=== PATIENT | female | born 1935 | race Caucasian/White ===

== ENCOUNTER → 2017-03-20 | Outpatient (CLI) | payer MEDICARE, BC ==
--- NOTE | 2017-03-20 14:17 | XR ---
EXAMINATION TYPE: XR chest 2V DATE OF EXAM: 03/20/2017 COMPARISON: NONE HISTORY: Shortness of breath TECHNIQUE: Frontal and lateral views of the chest are obtained. FINDINGS: There is no focal air space opacity, pleural effusion, or pneumothorax seen. The cardiac silhouette size is within normal limits. The aorta is dense. Strand-like densities at the left lung base may reflect atelectasis or scar. Right shoulder is high riding, there may be chronic rotator cuf f tear. Rotated. Surgical clips in the upper abdomen. The osseous structures are intact. IMPRESSION: No acute cardiopulmonary process.
== END | disposition home or self-care (01) ==
LOC: RADXRMAIN 13:23
PROVIDERS: ATTEND Internal Medicine Geriatric Medicine
DX: R06.02 Shortness of breath (principal)
CPT/HCPCS: 71020

== ENCOUNTER → 2019-07-31 | Outpatient (CLI) | payer MEDICARE, BC ==
--- NOTE | 2019-07-31 15:34 | SFUN ---
SLEEP CENTER FOLLOW UP NOTE DATE OF SERVICE: 07/31/2019 An 83-year-old lady who has been followed in Sleep Center for treatment of obstructive sleep apnea-hypopnea syndrome. Patient continued to use her CPAP equipment every night for the whole night. Does not snore with the machine. Does not have significant problems related to CPAP therapy. Her CPAP unit is very old. CPAP pressure is 10 cm of water. Machine does not have information about apnea- hypopnea index. Antoine Sleepiness Scale today is 1. MEDICATIONS: Zantac, Ranitidine, atenolol, omeprazole, Lipitor, Xanax, calcium supplement, atorvastatin, baby aspirin, losartan. PHYSICAL EXAM: Patient in no distress, BP 143/64, HR 72, RR 16, height 5 feet, weight 178, body mass index 31.5. OROPHARYNX: Low position of soft palate, Mallampati 3. HEART: S1, S2. Systolic more and more on aorta. Neck Supple, no JVD. Thyroid is not palpable. LUNGS Clear to percussion and to auscultation. Good air exchange. No wheezing or rhonchi. ABDOMEN Soft and nontender. Bowel sounds are present. No organomegaly appreciated. EXTREMITIES No clubbing or cyanosis. Patient walks with a walker. [employer] Awake, alert, and oriented X3. Cranial nerves 2 to 7 intact. There is no fasciculation or atrophy. noted. No focal deficits observed. IMPRESSION: 1. Obstructive sleep apnea-hypopnea syndrome clinically controlled on CPAP at a pressure of 10 cm of water. 2. Hypertension. 3. Hyperlipidemia. 4. History of spinal stenosis. 5. Scoliosis. 6. Carpal tunnel syndrome. 7. Status post cholecystectomy. 8. Status post appendectomy. 9. Status post bilateral cataract surgery. PLAN: 1. Prescription for new CPAP unit with a pressure of 10 cm of water and all necessary CPAP supplies. 2. Patient will continue to use CPAP equipment every night for the whole night. 3. Follow up visit in 1 month after she will get new CPAP unit to evaluate her clinical response to treatment, compliance with treatment and check apnea-hypopnea index reading from the machine. 4. Precautions related to driving. No driving if feeling sleepiness. Thank you very much for allowing me to participate in the management of your patient. Sincerely, Kvng Smallwood MD, PhD, FAASM Diplomat of [employer] Consultant [facility] [place] MMODL / IJN: [id number] /
== END ==
LOC: SLEEP 14:14
PROVIDERS: ATTEND Internal Medicine
DX: G47.33 Obstructive sleep apnea (adult) (pediatric) (principal); I10 Essential (primary) hypertension; E78.5 Hyperlipidemia, unspecified; M41.9 Scoliosis, unspecified; G56.00 Carpal tunnel syndrome, unspecified upper limb; Z87.39 Personal history of other diseases of the musculoskeletal system and connective tissue; Z90.49 Acquired absence of other specified parts of digestive tract; Z99.89 Dependence on other enabling machines and devices; Z98.42 Cataract extraction status, left eye; Z98.41 Cataract extraction status, right eye; Z79.899 Other long term (current) drug therapy; Z79.82 Long term (current) use of aspirin

== ENCOUNTER 2022-05-11 14:39 | Inpatient (IN) | payer BC, MEDICARE ==
[2022-05-11] MEDS ORDERED: SODIUM CHLORIDE 0.9% 500 ML 500 ML IV STA ×2 (15:01→17:13)
[2022-05-11] MEDS ORDERED: SODIUM CHLORIDE 0.9% 1,000 ML IV STA (15:01)
[2022-05-11] MEDS ORDERED: KETOROLAC 15 MG/ML 1 ML VIAL IVP STA (15:01)
[2022-05-11] MEDS ORDERED: ONDANSETRON 4 MG/2 ML VIAL IVP STA (15:01)
--- NOTE | 2022-05-11 15:04 | ED ---
Female Urogenital HPI - General Chief complaint: Urogenital Stated complaint: Poss kidney stone Time Seen by Provider: 05/11/22 14:41 Source: patient, RN notes reviewed Mode of arrival: ambulatory Limitations: no limitations - History of Present Illness Initial comments: 86-year-old female with a prior history kidney stones and states she had the onset of right-sided flank pain about 2 hours prior to arrival she states this started in the right lower quadrant flank areas radiating somewhat upward. She's had some nausea with it no vomiting pain is approximately 7/10 at this time she states it started at 10/10. It feels identical to previous kidney stones. He's had no fevers chills or sweats related to this. No dysuria. She states she is got diminished vision and can't see what color her urine has been. MD Complaint: other - Related Data Home Medications Medication Instructions Recorded Confirmed ALPRAZolam [Xanax] 0.25 mg PO TID PRN 10/28/15 05/11/22 Aspirin EC [Ecotrin Low Dose] 81 mg PO HS 10/28/15 05/11/22 Atorvastatin Calcium [Lipitor] 10 mg PO HS 10/28/15 05/11/22 Calcium Carbonate [Calcium] 600 mg PO HS 10/28/15 05/11/22 Diclofenac Sodium [Voltaren] 75 mg PO BID 10/28/15 05/11/22 Loratadine [Claritin] 10 mg PO HS 10/28/15 05/11/22 Potassium Chloride ER [K-Dur 10] 20 meq PO HS 10/28/15 05/11/22 atenoloL [Tenormin] 50 mg PO HS 10/28/15 05/11/22 Ergocalciferol [Vitamin D2 50,000 unit PO SERNA 09/23/17 05/11/22 (DRISDOL)] Losartan Potassium [Cozaar] 50 mg PO HS 09/23/17 05/11/22 Vit C/E/Zn/Coppr/Lutein/Zeaxan 1 cap PO BID 09/23/17 05/11/22 [Preservision Areds 2 Softgel] Albuterol Sulfate [Albuterol 2 puff PO RT-Q6H PRN 05/11/22 05/11/22 Sulfate Hfa] Multivit-Min/Iron/Folic/Lutein 1 tab PO HS 05/11/22 05/11/22 [Centrum Silver Women Tablet] Pantoprazole Sodium [Protonix] 40 mg PO BID 05/11/22 05/11/22 Allergies Allergy/AdvReac Type Severity Reaction Status Date / Time Iodinated Contrast Media Allergy Unknown Verified 05/11/22 16:22 [Iodinated Contrast Media - IV Dye] shellfish derived [Shrimp] Allergy Unknown Verified 05/11/22 16:22 Review of Systems ROS Statement: Those systems with pertinent positive or pertinent negative responses have been documented in the HPI. ROS Other: All systems not noted in ROS Statement are negative. Past Medical History Past Medical History: Heart Failure, GERD/Reflux, Hearing Disorder / Deafness, Hyperlipidemia, Hypertension, Osteoarthritis (OA) Additional Past Medical History / Comment(s): SLEEP APNEA, jaundice in the 11th grade unsure of why, macular degeneration, Mitral valve issues - pt unsure if it is prolapsed, mild renal insufficency, scoliosis, spinal stenosis, sciatica History of Any Multi-Drug Resistant Organisms: None Reported Past Surgical History: Appendectomy, Cholecystectomy, Hysterectomy, Orthopedic Surgery Additional Past Surgical History / Comment(s): Bilateral cataract extraction and intraocular lens implants, right carpal tunnel release, epidural injections in the lumbar spine, colonoscopy 4 years ago with no abnormalities, left knee arthroscopy Past Anesthesia/Blood Transfusion Reactions: No Reported Reaction Past Psychological History: Anxiety, Depression Smoking Status: Former smoker Past Alcohol Use History: None Reported Past Drug Use History: None Reported - Past Family History Son(s) Additional Family Medical History / Comment(s): hemodialysis. Patient has a total of 3 sons. Father Family Medical History: CVA/TIA Additional Family Medical History / Comment(s): Father at age 77 status post several strokes. Mother Additional Family Medical History / Comment(s): Mother at age 86 from pneumonia. Sister(s) Additional Family Medical History / Comment(s): Patient has 3 sisters and one from cancer and one from a myocardial infarction with history of Wiliam recinos's. Patient does not have any brothers. General Exam - General Exam Comments Initial Comments: This is a well-developed well-nourished awake alert oriented 4 female Limitations: no limitations General appearance: alert, anxious Head exam: Present: atraumatic, normocephalic, normal inspection Eye exam: Present: normal appearance, PERRL, EOMI. Absent: scleral icterus, conjunctival injection, periorbital swelling ENT exam: Present: normal exam, mucous membranes moist Neck exam: Present: normal inspection. Absent: tenderness, meningismus, lymphadenopathy Respiratory exam: Present: normal lung sounds bilaterally. Absent: respiratory distress, wheezes, rales, rhonchi, stridor Cardiovascular Exam: Present: regular rate, normal rhythm, normal heart sounds. Absent: systolic murmur, diastolic murmur, rubs, gallop, clicks GI/Abdominal exam: Present: soft, tenderness (Minimal discomfort to palpation over the right flank and lower quadrant region), normal bowel sounds. Absent: distended, guarding, rebound, rigid Extremities exam: Present: normal inspection, full ROM, normal capillary refill. Absent: tenderness, pedal edema, joint swelling, calf tenderness Back exam: Present: normal inspection Neurological exam: Present: alert, oriented X3, CN II-XII intact Psychiatric exam: Present: normal affect, normal mood Skin exam: Present: warm, dry, intact, normal color. Absent: rash Course Vital Signs 05/11/22 05/11/22 05/11/22 14:41 18:06 19:40 Temperature 97.6 F Pulse Rate 70 76 70 Respiratory 16 16 16 Rate Blood Pressure 167/77 125/59 136/66 O2 Sat by Pulse 96 95 99 Oximetry - Reevaluation(s) Reevaluation #1: 05/11/22 17:19 Patient's pain is down to 5/10 no more nausea I did discuss the findings with her and her family members. Patient will receive more medication Medical Decision Making - Medical Decision Making I did reevaluate patient on multiple occasions she still has persistent pain with nausea. She does demonstrate evidence of dehydration. I did discuss the case with Dr. Singh will be consulted patient will be admitted to medicine Dr. Ventura's covering Dr. Romero. - Lab Data Result diagrams: 05/11/22 15:01 05/11/22 15:01 Lab Results 05/11/22 05/11/22 Range/Units 15:01 15:01 WBC 5.4 (3.8-10.6) k/uL RBC 4.13 (3.80-5.40) m/uL Hgb 13.2 (11.4-16.0) gm/dL Hct 39.7 (34.0-46.0) % MCV 96.3 (80.0-100.0) fL MCH 32.0 (25.0-35.0) pg MCHC 33.2 (31.0-37.0) g/dL RDW 13.7 (11.5-15.5) % Plt Count 188 (150-450) k/uL MPV 8.2 Neutrophils % 71 % Lymphocytes % 17 % Monocytes % 6 % Eosinophils % 3 % Basophils % 1 % Neutrophils # 3.8 (1.3-7.7) k/uL Lymphocytes # 0.9 L (1.0-4.8) k/uL Monocytes # 0.3 (0-1.0) k/uL Eosinophils # 0.2 (0-0.7) k/uL Basophils # 0.0 (0-0.2) k/uL Sodium 139 (137-145) mmol/L Potassium 4.7 (3.5-5.1) mmol/L Chloride 109 H (98-107) mmol/L Carbon Dioxide 23 (22-30) mmol/L Anion Gap 7 mmol/L BUN 37 H (7-17) mg/dL Creatinine 1.57 H (0.52-1.04) mg/dL Est GFR (CKD-EPI)AfAm 34 (>60 ml/min/1.73 sqM) Est GFR (CKD-EPI)NonAf 30 (>60 ml/min/1.73 sqM) Glucose 113 H (74-99) mg/dL Calcium 9.9 (8.4-10.2) mg/dL Total Bilirubin 1.0 (0.2-1.3) mg/dL AST 44 H (14-36) U/L ALT 36 H (4-34) U/L Alkaline Phosphatase 61 (38-126) U/L Total Protein 7.0 (6.3-8.2) g/dL Albumin 4.2 (3.5-5.0) g/dL Amylase 71 (30-110) U/L Lipase 171 (23-300) U/L - Radiology Data Radiology results: report reviewed (Imaging reviewed as well as report evidence of a 4 mm calculus at the distal right ureter also some other calcification noted in the same area.), image reviewed Disposition Clinical Impression: Renal colic on right side, Kidney stone on right side, Intractable pain, Dehydration Disposition: ADMITTED IP TO THIS [facility] Condition: Fair Referrals: Low Romero MD [Primary Care Provider] - 1-2 days Decision Date: 05/11/22 Decision Time: 19:00
[2022-05-11 15:10] LABS: Basophils % (A) 1 %; Eosinophils # (A) 0.2 k/uL (0-0.7); Eosinophils % (A) 3 %; HCT 39.7 % (34.0-46.0); HGB 13.2 gm/dL (11.4-16.0); Lymphocytes # (A) 0.9 k/uL (1.0-4.8); Lymphocytes % (A) 17 %; MCHC 33.2 g/dL (31.0-37.0); MCV 96.3 fL (80.0-100.0); Mean Platelet Volume 8.2; Monocytes # (A) 0.3 k/uL (0-1.0); Monocytes % (A) 6 %; Neutrophils # (A) 3.8 k/uL (1.3-7.7); Neutrophils % (A) 71 %; Platelet Count 188 k/uL (150-450); RBC 4.13 m/uL (3.80-5.40); RDW 13.7 % (11.5-15.5); WBC 5.4 k/uL (3.8-10.6)
[2022-05-11 15:30] LABS: Albumin 4.2 g/dL (3.5-5.0); Calcium 9.9 mg/dL (8.4-10.2)
[2022-05-11 15:31] LABS: Potassium 4.7 mmol/L (3.5-5.1)
--- NOTE | 2022-05-11 15:42 | XR ---
EXAMINATION TYPE: XR KUB DATE OF EXAM: 05/11/2022 Comparison: Correlation CT same day Clinical History: 86-year-old female abdominal pain Findings: Degenerative S-shaped scoliosis. Nonobstructive bowel gas pattern. No significant stool burden. Jenise cystectomy clips. A couple small, 4 and 5 mm distal right ureteral and UVJ calculi seen on CT of the same day are not radiographically apparent. A couple left-sided renal calculi measuring up to 4 mm. Atherosclerotic calcifications throughout the abdominal aorta. Moderate degenerative change in both h ips. Impression: 1. A couple small, 4 and 5 mm distal right ureteral and UVJ stones seen on CT of the same day are not radiographically apparent. 2. Nonobstructive left renal calculi measuring up to 4 mm. 3. Degenerated S-shaped scoliosis. Moderate bilateral hip OA.
--- NOTE | 2022-05-11 15:43 | CT ---
EXAMINATION TYPE: CT abdomen pelvis wo con DATE OF EXAM: 05/11/2022 COMPARISON: 05/18/2014 INDICATION: Rt flank pain, hx renal stones DLP: 575.8 mGycm, Automated exposure control for dose reduction was used. CONTRAST: 0 mL of Isovue 300. Study performed without Oral Contrast TECHNIQUE: Axial images were obtained from above the diaphragm to the pubic rami in the axial plane a t 5 mm thick sections. Reconstructed images are reviewed on the computer in the coronal plane. FINDINGS: Limited CT sections are obtained the lung bases. The lung bases are clear. CT ABDOMEN: Liver: Normal Spleen: Normal Pancreas: Normal Adrenal glands: The adrenal glands are normal. Gallbladder: Surgically absent Kidneys: No masses are evident. Air is moderate right hydronephrosis and hydroureter. Hydroureter ext ends to a distal ureteral stone near the ureterovesical junction measuring 0.4 cm. An additional punc baumann calcification may be in the distal right ureterovesical junction measuring 0.4 cm. There is a 4. 4 cm cyst at the posterior superior pole left kidney. A 0.4 cm nonobstructing renal stone is in the superior lateral left kidney. Couple of additional punctate mid left kidney stones are present. Aorta: Vascular calcification is within the aorta. Inferior vena cava: There is some flattening of the inferior vena cava which may be related to volume status. CT PELVIS: Loops of bowel within the abdomen and pelvis are normal. Studies lateral contrast limiting bowel evaluation. Appendix: Not visualized. No dilated tubular structure or inflammatory changes are evident. Urinary bladder: Normal. Genitourinary structures: Uterus and ovaries are not identified. Osseous structures: No suspicious lytic or sclerotic lesions. Spondylolysis at L5 may be present. Deg enerative disc changes are present. IMPRESSIONS: 1. 0.4 cm distal right ureteral stone with an additional 0.4 cm calcification at the right ureterove sical junction. 2. Additional nonobstructing left renal stones. 3. Left renal cyst
[2022-05-11] MEDS ORDERED: TAMSULOSIN 0.4 MG CAP.ER.24H PO STA (17:13)
[2022-05-11] MEDS ORDERED: MORPHINE SULFATE 4 MG/ML SYRINGE IVP STA (17:13)
[2022-05-11] MEDS ORDERED: NALOXONE 0.4 MG/ML 1 ML VIAL IV PRN (19:52)
[2022-05-11] MEDS ORDERED: HYDROmorphone 0.5 MG/0.5 ML SYRINGE IVP PRN (19:52)
[2022-05-11] MEDS ORDERED: ALBUTEROL NEBULIZED 2.5 MG/3 ML INHALATION PRN (19:54)
[2022-05-11] MEDS: LORATADINE 10 MG TAB PO SCH (20:40)
[2022-05-11] MEDS: ASPIRIN 81 MG PO SCH (20:40)
[2022-05-11] MEDS: ATORVASTATIN 10 MG TAB PO SCH (20:40)
[2022-05-11] MEDS: PANTOPRAZOLE 40 MG TABLET PO SCH (20:41)
[2022-05-11] MEDS: ALPRAZolam 0.25 MG TAB PO PRN (20:41)
[2022-05-11] MEDS: POTASSIUM CHLORIDE ER 20 MEQ TAB.ER PO SCH (20:41)
[2022-05-11] MEDS: SODIUM CHLORIDE 0.9% 1,000 ML IV SCH (20:41)
[2022-05-11] MEDS: MULTIVITAMINS, THERA 1 EACH TAB PO SCH (20:41)
[2022-05-11] MEDS ORDERED: LOSARTAN 50 MG TAB PO SCH (21:00)
[2022-05-11] MEDS: atenoloL 50 MG TAB PO SCH (22:37)
[2022-05-11] MEDS: ACETAMINOPHEN TAB 325 MG TAB PO PRN (23:05)
[2022-05-12] MEDS: SODIUM CHLORIDE 0.9% 1,000 ML IV SCH (04:47)
[2022-05-12] MEDS: PANTOPRAZOLE 40 MG TABLET PO SCH ×2 (08:02→20:24)
--- NOTE | 2022-05-12 08:23 | P.GSCN ---
History of Present Illness Consult date: 05/12/22 History of present illness: 86 yo female with a history of stones presents to the er with right flank pain. A 4 mm right distal ureteral stone with hydronephrosis. Because of persistent pain she was admitted to the hospital for pain control and urological consultation.The ct scan also shows a small left renal cyst and tiny left renal calculi. The patient has had one stone that she passed about 5 years ago. She's never seen a urologist. She is feeling much better this morning. She's not sure whether she passed the stone. She has no more pain. Review of Systems All systems: negative - Constitutional Denies fever, Denies weight loss - EENT Eyes: denies blurred vision Ears, nose, mouth and throat: Denies dysphagia - Cardiovascular Denies chest pain, Denies shortness of breath - Respiratory Denies cough, Denies 7 - Gastrointestinal Reports as per HPI - Genitourinary Genitourinary: Denies dysuria, Denies hematuria - Integumentary Denies rash, Denies unusual bruising - Neurological Denies headaches, Denies syncope - Hematologic/Lymphatic Denies easy bleeding, Denies easy bruising Past Medical History Past Medical History: Heart Failure, GERD/Reflux, Hearing Disorder / Deafness, Hyperlipidemia, Hypertension, Osteoarthritis (OA) Additional Past Medical History / Comment(s): SLEEP APNEA, jaundice in the 11th grade unsure of why, macular degeneration, Mitral valve issues - pt unsure if it is prolapsed, mild renal insufficency, scoliosis, spinal stenosis, sciatica History of Any Multi-Drug Resistant Organisms: None Reported Past Surgical History: Appendectomy, Cholecystectomy, Hysterectomy, Orthopedic Surgery Additional Past Surgical History / Comment(s): Bilateral cataract extraction and intraocular lens implants, right carpal tunnel release, epidural injections in the lumbar spine, colonoscopy 4 years ago with no abnormalities, left knee arthroscopy Past Anesthesia/Blood Transfusion Reactions: No Reported Reaction Past Psychological History: Anxiety, Depression Smoking Status: Former smoker Past Alcohol Use History: None Reported Additional Past Alcohol Use History / Comment(s): Patient was a smoker one and half packs per day for 15 years and quit 35 years ago. No marijuana, illicit drug use or alcohol use. She is a walker for ambulation. Past Drug Use History: None Reported - Past Family History Son(s) Additional Family Medical History / Comment(s): hemodialysis. Patient has a total of 3 sons. Father Family Medical History: CVA/TIA Additional Family Medical History / Comment(s): Father at age 77 status post several strokes. Mother Additional Family Medical History / Comment(s): Mother at age 86 from pneumonia. Sister(s) Additional Family Medical History / Comment(s): Patient has 3 sisters and one from cancer and one from a myocardial infarction with history of Parkinson's. Patient does not have any brothers. Medications and Allergies Home Medications Medication Instructions Recorded Confirmed Type ALPRAZolam [Xanax] 0.25 mg PO TID PRN 10/28/15 05/11/22 History Aspirin EC [Ecotrin Low Dose] 81 mg PO HS 10/28/15 05/11/22 History Atorvastatin Calcium [Lipitor] 10 mg PO HS 10/28/15 05/11/22 History Calcium Carbonate [Calcium] 600 mg PO HS 10/28/15 05/11/22 History Diclofenac Sodium [Voltaren] 75 mg PO BID 10/28/15 05/11/22 History Loratadine [Claritin] 10 mg PO HS 10/28/15 05/11/22 History Potassium Chloride ER [K-Dur 10] 20 meq PO HS 10/28/15 05/11/22 History atenoloL [Tenormin] 50 mg PO HS 10/28/15 05/11/22 History Ergocalciferol [Vitamin D2 50,000 unit PO SERNA 09/23/17 05/11/22 History (DRISDOL)] Losartan Potassium [Cozaar] 50 mg PO HS 09/23/17 05/11/22 History Vit C/E/Zn/Coppr/Lutein/Zeaxan 1 cap PO BID 09/23/17 05/11/22 History [Preservision Areds 2 Softgel] Albuterol Sulfate [Albuterol 2 puff PO RT-Q6H PRN 05/11/22 05/11/22 History Sulfate Hfa] Multivit-Min/Iron/Folic/Lutein 1 tab PO HS 05/11/22 05/11/22 History [Centrum Silver Women Tablet] Pantoprazole Sodium [Protonix] 40 mg PO BID 05/11/22 05/11/22 History Allergies Allergy/AdvReac Type Severity Reaction Status Date / Time Iodinated Contrast Media Allergy Unknown Verified 05/11/22 16:22 [Iodinated Contrast Media - IV Dye] shellfish derived [Shrimp] Allergy Unknown Verified 05/11/22 16:22 Surgical - Exam Vital Signs Temp Pulse Resp BP Pulse Ox 97.6 F 70 16 167/77 96 05/11/22 14:41 05/11/22 14:41 05/11/22 14:41 05/11/22 14:41 05/11/22 14:41 - General well developed, well nourished, no distress - Eyes normal ocular movement, no icteric - ENT no hearing loss, no congestion - Neck no masses, trachea midline - Respiratory normal respiratory effort, clear to auscultation - Abdomen Abdomen: soft, non tender, no guarding, no rigid, no rebound - Integumentary no rash, no abnormal pigmentation - Neurologic no disoriented, no combative - Psychiatric oriented to time, oriented to person, oriented to place, speech is normal, memory intact Results - Labs 05/11/22 15:01 05/11/22 15:01 Abnormal Lab Results - Last 24 Hours (Table) 05/11/22 05/11/22 Range/Units 15:01 15:01 Lymphocytes # 0.9 L (1.0-4.8) k/uL Chloride 109 H (98-107) mmol/L BUN 37 H (7-17) mg/dL Creatinine 1.57 H (0.52-1.04) mg/dL Glucose 113 H (74-99) mg/dL AST 44 H (14-36) U/L ALT 36 H (4-34) U/L Diabetes panel 05/11/22 Range/Units 15:01 Sodium 139 (137-145) mmol/L Potassium 4.7 (3.5-5.1) mmol/L Chloride 109 H (98-107) mmol/L Carbon Dioxide 23 (22-30) mmol/L BUN 37 H (7-17) mg/dL Creatinine 1.57 H (0.52-1.04) mg/dL Glucose 113 H (74-99) mg/dL Calcium 9.9 (8.4-10.2) mg/dL AST 44 H (14-36) U/L ALT 36 H (4-34) U/L Alkaline Phosphatase 61 (38-126) U/L Total Protein 7.0 (6.3-8.2) g/dL Albumin 4.2 (3.5-5.0) g/dL Calcium panel 05/11/22 Range/Units 15:01 Calcium 9.9 (8.4-10.2) mg/dL Albumin 4.2 (3.5-5.0) g/dL Pituitary panel 05/11/22 Range/Units 15:01 Sodium 139 (137-145) mmol/L Potassium 4.7 (3.5-5.1) mmol/L Chloride 109 H (98-107) mmol/L Carbon Dioxide 23 (22-30) mmol/L BUN 37 H (7-17) mg/dL Creatinine 1.57 H (0.52-1.04) mg/dL Glucose 113 H (74-99) mg/dL Calcium 9.9 (8.4-10.2) mg/dL Adrenal panel 05/11/22 Range/Units 15:01 Sodium 139 (137-145) mmol/L Potassium 4.7 (3.5-5.1) mmol/L Chloride 109 H (98-107) mmol/L Carbon Dioxide 23 (22-30) mmol/L BUN 37 H (7-17) mg/dL Creatinine 1.57 H (0.52-1.04) mg/dL Glucose 113 H (74-99) mg/dL Calcium 9.9 (8.4-10.2) mg/dL Total Bilirubin 1.0 (0.2-1.3) mg/dL AST 44 H (14-36) U/L ALT 36 H (4-34) U/L Alkaline Phosphatase 61 (38-126) U/L Total Protein 7.0 (6.3-8.2) g/dL Albumin 4.2 (3.5-5.0) g/dL - Imaging CT scan - abdomen: report reviewed, image reviewed CT scan - pelvis: report reviewed, image reviewed Assessment and Plan Assessment: Impression: Right ureteral calculus, left renal calculi Recommendations: The patient may have passed a stone as her pain is totally g one. She is voided. From my standpoint she can be discharged home and follow- up in the office in a couple weeks. Have instructed the patient that if her pain returns she should contact me prior to the scheduled office visit.
[2022-05-12 08:24] LABS: Basophils % (A) 1 %; Eosinophils # (A) 0.1 k/uL (0-0.7); Eosinophils % (A) 3 %; Lymphocytes # (A) 0.8 k/uL (1.0-4.8); Lymphocytes % (A) 18 %; MCH 32.3 pg (25.0-35.0); MCHC 32.6 g/dL (31.0-37.0); MCV 99.2 fL (80.0-100.0); Mean Platelet Volume 8.1; Monocytes # (A) 0.3 k/uL (0-1.0); Monocytes % (A) 6 %; Neutrophils % (A) 71 %; Platelet Count 142 k/uL (150-450); RBC 3.73 m/uL (3.80-5.40); RDW 13.6 % (11.5-15.5); WBC 4.3 k/uL (3.8-10.6)
--- NOTE | 2022-05-12 08:52 | P.HPIM ---
History of Present Illness This is a pleasant 86 years old female with past medical history of hypertension, hyperlipidemia, chronic heart failure, coronary artery disease, GERD, osteoarthritis spinal stenosis and sciatica, sleep apnea Patient presents because of right flank pain of one-day duration, pain was severe about 10/10. Imaging showing right ureteral stone. However her pain is completely resolved now is 0/10. She is not sure if he passed a stone or not however she's been evaluated by urologist Dr. Castro who cleared her for discharge today. Patient was informed about her elevated creatinine, with instruction to stop NSAIDs including Voltaren at home and she verbalized understanding and acceptance Vitals are stable. Labs including CBC is unremarkable. Creatinine is elevated at 1.5. Baseline 1.0-1.1. Mildly elevated liver enzymes AST 44 and ALT 36 with normal bilirubin at 1.0. CT of the abdomen and pelvis: 0.4 cm distal ureteral stone on the right side with additional 0.4 cm calcification of the right ureterovesical junction. Left renal cyst, patient nonobstructing left renal stone KUB: Non obstructive gas pattern. Hip osteoarthritis, renal stones as above In the emergency room patient received normal saline, Toradol, morphine and Zofran. Urologist been consulted Review of Systems CONSTITUTIONAL: No fever, no malaise, no fatigue. HEENT: No recent visual problems or hearing problems. Denied any sore throat. CARDIOVASCULAR: No orthopnea, PND, no palpitations, no syncope. PULMONARY: No shortness of breath, no cough, no hemoptysis. GASTROINTESTINAL: No diarrhea, . Normoactive bowel sounds. NEUROLOGICAL: No headaches, no weakness, no numbness. HEMATOLOGICAL: Denies any bleeding or petechiae. GENITOURINARY: Denies any burning micturition, frequency, or urgency. MUSCULOSKELETAL/RHEUMATOLOGICAL: Denies any joint pain, swelling, or any muscle pain. ENDOCRINE: Denies any polyuria or polydipsia. Past Medical History Past Medical History: Heart Failure, GERD/Reflux, Hearing Disorder / Deafness, Hyperlipidemia, Hypertension, Osteoarthritis (OA) Additional Past Medical History / Comment(s): SLEEP APNEA, jaundice in the 11th grade unsure of why, macular degeneration, Mitral valve issues - pt unsure if it is prolapsed, mild renal insufficency, scoliosis, spinal stenosis, sciatica History of Any Multi-Drug Resistant Organisms: None Reported Past Surgical History: Appendectomy, Cholecystectomy, Hysterectomy, Orthopedic Surgery Additional Past Surgical History / Comment(s): Bilateral cataract extraction and intraocular lens implants, right carpal tunnel release, epidural injections in the lumbar spine, colonoscopy 4 years ago with no abnormalities, left knee arthroscopy Past Anesthesia/Blood Transfusion Reactions: No Reported Reaction Past Psychological History: Anxiety, Depression Smoking Status: Former smoker Past Alcohol Use History: None Reported Additional Past Alcohol Use History / Comment(s): Patient was a smoker one and half packs per day for 15 years and quit 35 years ago. No marijuana, illicit drug use or alcohol use. She is a walker for ambulation. Past Drug Use History: None Reported - Past Family History Son(s) Additional Family Medical History / Comment(s): hemodialysis. Patient has a total of 3 sons. Father Family Medical History: CVA/TIA Additional Family Medical History / Comment(s): Father at age 77 status post several strokes. Mother Additional Family Medical History / Comment(s): Mother at age 86 from pneumonia. Sister(s) Additional Family Medical History / Comment(s): Patient has 3 sisters and one from cancer and one from a myocardial infarction with history of Parkinson's. Patient does not have any brothers. Medications and Allergies Home Medications Medication Instructions Recorded Confirmed Type ALPRAZolam [Xanax] 0.25 mg PO TID PRN 10/28/15 05/11/22 History Aspirin EC [Ecotrin Low Dose] 81 mg PO HS 10/28/15 05/11/22 History Atorvastatin Calcium [Lipitor] 10 mg PO HS 10/28/15 05/11/22 History Calcium Carbonate [Calcium] 600 mg PO HS 10/28/15 05/11/22 History Loratadine [Claritin] 10 mg PO HS 10/28/15 05/11/22 History Potassium Chloride ER [K-Dur 10] 20 meq PO HS 10/28/15 05/11/22 History atenoloL [Tenormin] 50 mg PO HS 10/28/15 05/11/22 History Ergocalciferol [Vitamin D2 50,000 unit PO SERNA 09/23/17 05/11/22 History (DRISDOL)] Losartan Potassium [Cozaar] 50 mg PO HS 09/23/17 05/11/22 History Vit C/E/Zn/Coppr/Lutein/Zeaxan 1 cap PO BID 09/23/17 05/11/22 History [Preservision Areds 2 Softgel] Albuterol Sulfate [Albuterol 2 puff PO RT-Q6H PRN 05/11/22 05/11/22 History Sulfate Hfa] Multivit-Min/Iron/Folic/Lutein 1 tab PO HS 05/11/22 05/11/22 History [Centrum Silver Women Tablet] Pantoprazole Sodium [Protonix] 40 mg PO BID 05/11/22 05/11/22 History Allergies Allergy/AdvReac Type Severity Reaction Status Date / Time Iodinated Contrast Media Allergy Unknown Verified 05/11/22 16:22 [Iodinated Contrast Media - IV Dye] shellfish derived [Shrimp] Allergy Unknown Verified 05/11/22 16:22 Physical Exam Vitals: Vital Signs Temp Pulse Pulse Resp BP BP BP 05/12/22 01:27 98.0 F 64 15 100/63 05/11/22 22:03 97.9 F 75 15 115/69 05/11/22 20:28 78 16 112/42 05/11/22 19:40 70 16 136/66 05/11/22 18:06 76 16 125/59 05/11/22 14:41 97.6 F 70 16 167/77 Pulse Ox 05/12/22 01:27 94 L 05/11/22 22:03 96 05/11/22 20:28 98 05/11/22 19:40 99 05/11/22 18:06 95 05/11/22 14:41 96 Intake and Output 05/11/22 05/12/22 05/12/22 22:59 06:59 14:59 Other: Voiding Method Toilet # Voids 1 Weight 75.296 kg GENERAL: The patient is alert and oriented x3, not in any acute distress. Well developed, well nourished. HEENT: Pupils are round and equally reacting to light. EOMI. No scleral icterus. No conjunctival pallor. Normocephalic, atraumatic. No pharyngeal erythema. No thyromegaly. CARDIOVASCULAR: S1 and S2 present. No murmurs, rubs, or gallops. PULMONARY: Chest is clear to auscultation, no wheezing or crackles. ABDOMEN: Soft, nontender, nondistended, normoactive bowel sounds. No palpable organomegaly. MUSCULOSKELETAL: No joint swelling or deformity. EXTREMITIES: No cyanosis, clubbing, or pedal edema. NEUROLOGICAL: Gross neurological examination did not reveal any focal deficits. SKIN: No rashes. No petechiae Results CBC & Chem 7: 05/12/22 07:56 05/11/22 15:01 Labs: Abnormal Lab Results - Last 24 Hours (Table) 05/11/22 05/11/22 Range/Units 15:01 15:01 Lymphocytes # 0.9 L (1.0-4.8) k/uL Chloride 109 H (98-107) mmol/L BUN 37 H (7-17) mg/dL Creatinine 1.57 H (0.52-1.04) mg/dL Glucose 113 H (74-99) mg/dL AST 44 H (14-36) U/L ALT 36 H (4-34) U/L Thrombosis Risk Factor Assmnt - Choose All That Apply Each Risk Factor Represents 3 Points: Age 75 years or older Thrombosis Risk Factor Assessment Total Risk Factor Score: 3 Thrombosis Risk Factor Assessment Level: Moderate Risk Assessment and Plan Assessment: Right renal colic with CT of the abdomen showing 0.4 right ureteral stone acute kidney injury, mild. Secondary to above Hypertension Hyperlipidemia Bilateral nephrolithiasis Chronic heart failure, unknown ejection fraction History of GERD History of posterior arthritis History of CHF History of spinal stenosis and sciatica History of sleep apnea Plan: This is a pleasant 86 years old female who presents with right ureteral stone and right colic. Continue with pain management when necessary, however patient is pain-free now Continue with IV hydration Urology consult to clear the patient for discharge If creatinine improves, then patient may be considered for discharge today or Labs and medication were reviewed.. Continue same treatment. Continue with sy mptomatic treatment. Resume home medication. Monitor lytes and vitals. DVT and GI prophylaxis. Further recommendations depends on the clinical course of the patient DVT prophylaxis: Subcutaneous heparin GI Prophylaxis: Pepcid
[2022-05-12 17:42] LABS: African American GFR (CKD) 29 (>60 ml/min/1.73 sqM); Anion Gap 6 mmol/L; Blood Urea Nitrogen 32 mg/dL (7-17); Calcium 9.3 mg/dL (8.4-10.2); Carbon Dioxide 24 mmol/L (22-30); Chloride 108 mmol/L (98-107); Glucose 107 mg/dL (74-99); Non-African American GFR(CKD) 25 (>60 ml/min/1.73 sqM); Potassium 4.6 mmol/L (3.5-5.1); Sodium 138 mmol/L (137-145)
[2022-05-12] MEDS: ALPRAZolam 0.25 MG TAB PO PRN (18:00)
[2022-05-12] MEDS ORDERED: MIDODRINE 5 MG TAB PO SCH (18:15)
[2022-05-12] MEDS: ATORVASTATIN 10 MG TAB PO SCH (20:24)
[2022-05-12] MEDS: POTASSIUM CHLORIDE ER 20 MEQ TAB.ER PO SCH (20:24)
[2022-05-12] MEDS: MULTIVITAMINS, THERA 1 EACH TAB PO SCH (20:24)
[2022-05-12] MEDS: LORATADINE 10 MG TAB PO SCH (20:24)
[2022-05-12] MEDS: ASPIRIN 81 MG PO SCH (20:24)
[2022-05-12] MEDS: atenoloL 50 MG TAB PO SCH (20:25)
[2022-05-13] MEDS: ALPRAZolam 0.25 MG TAB PO PRN ×2 (08:19→18:34)
[2022-05-13] MEDS: PANTOPRAZOLE 40 MG TABLET PO SCH ×2 (08:19→20:24)
[2022-05-13 11:18] LABS: Basophils # (A) 0.03 X 10*3/uL (0.00-0.10); Basophils % (A) 0.7 %; Eosinophils # (A) 0.22 X 10*3/uL (0.04-0.35); Eosinophils % (A) 5.1 %; HCT 34.7 % (37.2-46.3); HGB 10.9 g/dL (12.0-15.0); Immature Grans, Automated 0.2 %; Lymphocytes # (A) 1.04 X 10*3/uL (0.90-5.00); Lymphocytes % (A) 24.3 %; MCH 30.2 pg (27.0-32.0); MCHC 31.4 g/dL (32.0-37.0); MCV 96.1 fL (80.0-97.0); Mean Platelet Volume 10.7 fL (9.5-12.2); Monocytes # (A) 0.56 X 10*3/uL (0.20-1.00); Monocytes % (A) 13.1 %; NRBC Per 100 WBC 0 /100 WBCS (0.0-0.0); Neutrophils # (A) 2.42 X 10*3/uL (1.80-7.70); Neutrophils % (A) 56.6 %; Platelet Count 150 X 10*3/uL (140-440); RBC 3.61 X 10*6/uL (4.10-5.20); RDW 13.2 % (11.5-14.5); WBC 4.28 X 10*3/uL (4.50-10.00)
[2022-05-13 11:28] LABS: ALT 210 U/L (8-44); AST 114 U/L (13-35); African American GFR (CKD) 31.3 (60.0-200.0); Albumin 3.5 g/dL (3.8-4.9); Albumin/Globulin Ratio 1.75 (1.60-3.17); Alkaline Phosphatase 89 U/L (41-126); BUN/Creat Ratio 16.82 Ratio (12.00-20.00); Bilirubin, Conjugated <0.20 mg/dL (0.20-0.40); Blood Urea Nitrogen 28.6 mg/dL (9.0-27.0); Calcium 9.2 mg/dL (8.7-10.3); Carbon Dioxide 21.8 mmol/L (20.0-27.5); Chloride 112 mmol/L (96-109); Glucose 85 mg/dL (70-110); Magnesium 2.2 mg/dL (1.5-2.4); Potassium 4.9 mmol/L (3.5-5.5); Sodium 144 mmol/L (135-145); Total Protein 5.5 g/dL (6.2-8.2)
[2022-05-13] MEDS ORDERED: FUROSEMIDE 10 MG/ML 2 ML VIAL IV STA (16:05)
--- NOTE | 2022-05-13 16:05 | P.NPCON ---
History of Present Illness - Reason for Consult Consult date: 05/13/22 acute renal failure - Chief Complaint Right flank pain. - History of Present Illness 86-year-old white lady coming with right flank pain. Computed tomography scan consistent with non-obstructive calculi. Creatinine 1.0 MG per DL from 2017. No new labs to compare. No nausea vomiting diarrhea. No chest pain or shortness of breath. Review of Systems Constitutional: Reports as per HPI Past Medical History Past Medical History: Heart Failure, GERD/Reflux, Hearing Disorder / Deafness, Hyperlipidemia, Hypertension, Osteoarthritis (OA) Additional Past Medical History / Comment(s): SLEEP APNEA, jaundice in the 11th grade unsure of why, macular degeneration, Mitral valve issues - pt unsure if it is prolapsed, mild renal insufficency, scoliosis, spinal stenosis, sciatica History of Any Multi-Drug Resistant Organisms: None Reported Past Surgical History: Appendectomy, Cholecystectomy, Hysterectomy, Orthopedic Surgery Additional Past Surgical History / Comment(s): Bilateral cataract extraction and intraocular lens implants, right carpal tunnel release, epidural injections in the lumbar spine, colonoscopy 4 years ago with no abnormalities, left knee arthroscopy Past Anesthesia/Blood Transfusion Reactions: No Reported Reaction Past Psychological History: Anxiety, Depression Smoking Status: Former smoker Past Alcohol Use History: None Reported Additional Past Alcohol Use History / Comment(s): Patient was a smoker one and half packs per day for 15 years and quit 35 years ago. No marijuana, illicit drug use or alcohol use. She is a walker for ambulation. Past Drug Use History: None Reported - Past Family History Son(s) Additional Family Medical History / Comment(s): hemodialysis. Patient has a total of 3 sons. Father Family Medical History: CVA/TIA Additional Family Medical History / Comment(s): Father at age 77 status post several strokes. Mother Additional Family Medical History / Comment(s): Mother at age 86 from pneumonia. Sister(s) Additional Family Medical History / Comment(s): Patient has 3 sisters and one from cancer and one from a myocardial infarction with history of Parkinson's. Patient does not have any brothers. Medications and Allergies Home Medications Medication Instructions Recorded Confirmed Type ALPRAZolam [Xanax] 0.25 mg PO TID PRN 10/28/15 05/11/22 History Aspirin EC [Ecotrin Low Dose] 81 mg PO HS 10/28/15 05/11/22 History Atorvastatin Calcium [Lipitor] 10 mg PO HS 10/28/15 05/11/22 History Calcium Carbonate [Calcium] 600 mg PO HS 10/28/15 05/11/22 History Loratadine [Claritin] 10 mg PO HS 10/28/15 05/11/22 History Potassium Chloride ER [K-Dur 10] 20 meq PO HS 10/28/15 05/11/22 History atenoloL [Tenormin] 50 mg PO HS 10/28/15 05/11/22 History Ergocalciferol [Vitamin D2 50,000 unit PO SERNA 09/23/17 05/11/22 History (DRISDOL)] Losartan Potassium [Cozaar] 50 mg PO HS 09/23/17 05/11/22 History Vit C/E/Zn/Coppr/Lutein/Zeaxan 1 cap PO BID 09/23/17 05/11/22 History [Preservision Areds 2 Softgel] Albuterol Sulfate [Albuterol 2 puff PO RT-Q6H PRN 05/11/22 05/11/22 History Sulfate Hfa] Multivit-Min/Iron/Folic/Lutein 1 tab PO HS 05/11/22 05/11/22 History [Centrum Silver Women Tablet] Pantoprazole Sodium [Protonix] 40 mg PO BID 05/11/22 05/11/22 History Allergies Allergy/AdvReac Type Severity Reaction Status Date / Time Iodinated Contrast Media Allergy Unknown Verified 05/11/22 16:22 [Iodinated Contrast Media - IV Dye] shellfish derived [Shrimp] Allergy Unknown Verified 05/11/22 16:22 Physical Exam Vitals: Vital Signs Temp Pulse Resp BP BP Pulse Ox 05/13/22 14:00 68 18 122/69 97 05/13/22 08:00 97.7 F 67 18 124/54 96 05/13/22 01:46 97.6 F 65 16 115/70 95 05/12/22 20:00 75 16 05/12/22 19:09 97.5 F L 75 15 156/75 97 Intake and Output 05/13/22 05/13/22 05/13/22 06:59 14:59 22:59 Other: Voiding Method Toilet # Voids 2 Weight 77.1 kg No acute distress S1-S2 heard Lungs clear Edema Results - Lab Results Most recent lab results Calcium 9.2 mg/dL (8.7-10.3) 05/13/22 06:04 Magnesium 2.2 mg/dL (1.5-2.4) 05/13/22 06:04 05/13/22 06:04 05/13/22 06:04 Assessment and Plan Assessment: #1 acute kidney injury/progressive chronic kidney disease. -Baseline creatinine 1.2 MG per DL in 2017. #2 nonobstructive renal calculi. #3 low normal blood pressures. #4 edema Plan: #1 renal function stable and improving. #2 discontinue potassium supplements, potassium high normal. #3 one dose of Lasix 20 mg IV push today. #4 labs in the morning
[2022-05-13] MEDS: ACETAMINOPHEN TAB 325 MG TAB PO PRN (16:51)
--- NOTE | 2022-05-13 20:12 | P.PN ---
Subjective This is a pleasant 86 years old female with past medical history of hypertension, hyperlipidemia, chronic heart failure, coronary artery disease, GE RD, osteoarthritis spinal stenosis and sciatica, sleep apnea Patient presents because of right flank pain of one-day duration, pain was severe about 10/10. Imaging showing right ureteral stone. However her pain is completely resolved now is 0/10. She is not sure if he passed a stone or not however she's been evaluated by urologist Dr. Castro who cleared her for discharge today. Patient was informed about her elevated creatinine, with instruction to stop NSAIDs including Voltaren at home and she verbalized understanding and acceptance Vitals are stable. Labs including CBC is unremarkable. Creatinine is elevated at 1.5. Baseline 1.0-1.1. Mildly elevated liver enzymes AST 44 and ALT 36 with normal bilirubin at 1.0. CT of the abdomen and pelvis: 0.4 cm distal ureteral stone on the right side with additional 0.4 cm calcification of the right ureterovesical junction. Left renal cyst, patient nonobstructing left renal stone KUB: Non obstructive gas pattern. Hip osteoarthritis, renal stones as above In the emergency room patient received normal saline, Toradol, morphine and Zofran. Urologist been consulted 05/13/2022 Patient is awake but lethargic, she answers questions appropriately. Her blood pressure is improved, after 1 dose of midodrine. She received 1 dose of Lasix today. Her creatinine was still elevated to 1.7 from acute kidney injury versus progressive chronic kidney disease. Liver enzymes also worsened, we going to check liver ultrasound. Objective - Vital Signs Vital signs: Vital Signs Temp 98.2 F 05/13/22 19:15 Pulse 66 05/13/22 19:17 Resp 16 05/13/22 19:17 BP 135/57 05/13/22 19:15 Pulse Ox 96 05/13/22 19:15 FiO2 Intake & Output 05/13/22 05/13/22 05/14/22 06:59 18:59 06:59 Weight 77.1 kg Other: Voiding Method Toilet Toilet Toilet # Voids 2 3 - Exam GENERAL: The patient is alert and oriented x3, not in any acute distress. Well developed, well nourished. HEENT: Pupils are round and equally reacting to light. EOMI. No scleral icterus. No conjunctival pallor. Normocephalic, atraumatic. No pharyngeal erythema. No thyromegaly. CARDIOVASCULAR: S1 and S2 present. No murmurs, rubs, or gallops. PULMONARY: Chest is clear to auscultation, no wheezing or crackles. ABDOMEN: Soft, nontender, nondistended, normoactive bowel sounds. No palpable organomegaly. MUSCULOSKELETAL: No joint swelling or deformity. EXTREMITIES: No cyanosis, clubbing, or pedal edema. NEUROLOGICAL: Gross neurological examination did not reveal any focal deficits. SKIN: No rashes. no petechiae. - Labs CBC & Chem 7: 05/13/22 06:04 05/13/22 06:04 Labs: Abnormal Lab Results - Last 24 Hours (Table) 05/13/22 05/13/22 Range/Units 06:04 06:04 WBC 4.28 L (4.50-10.00) X 10*3/uL RBC 3.61 L (4.10-5.20) X 10*6/uL Hgb 10.9 L (12.0-15.0) g/dL Hct 34.7 L (37.2-46.3) % MCHC 31.4 L (32.0-37.0) g/dL Chloride 112 H (96-109) mmol/L BUN 28.6 H (9.0-27.0) mg/dL Creatinine 1.7 H (0.6-1.5) mg/dL Est GFR (CKD-EPI)AfAm 31.3 L (60.0-200.0) Est GFR (CKD-EPI)NonAf 27.0 L (60.0-200.0) Conjugated Bilirubin <0.20 L (0.20-0.40) mg/dL AST 114 H (13-35) U/L ALT 210 H (8-44) U/L Total Protein 5.5 L (6.2-8.2) g/dL Albumin 3.5 L (3.8-4.9) g/dL Assessment and Plan Assessment: Right renal colic with CT of the abdomen showing 0.4 right ureteral stone acute kidney injury, mild. Secondary to above. Versus worsening chronic kidney disease stage III. Worsening liver enzymes Hypertension Hyperlipidemia Bilateral nephrolithiasis Chronic heart failure, unknown ejection fraction History of GERD History of posterior arthritis History of CHF History of spinal stenosis and sciatica History of sleep apnea Plan: This is a pleasant 86 years old female who presents with right ureteral stone and right colic. Elevated liver enzymes Monitor liver enzymes and check liver ultrasound Status post one-time dose of Lasix Nephrology input is appreciatedt Urologic neuro the patient for discharge Labs and medication were reviewed.. Continue same treatment. Continue with symptomatic treatment. Resume home medication. Monitor lytes and vitals. DVT and GI prophylaxis. Further recommendations depends on the clinical course of the patient DVT prophylaxis: Subcutaneous heparin GI Prophylaxis: Pepcid
[2022-05-13] MEDS: HEPARIN SODIUM,PORCINE/PF 5,000 UNIT/0.5 ML SYRINGE SQ SCH (20:24)
[2022-05-13] MEDS: LORATADINE 10 MG TAB PO SCH (20:24)
[2022-05-13] MEDS: ATORVASTATIN 10 MG TAB PO SCH (20:24)
[2022-05-13] MEDS: ASPIRIN 81 MG PO SCH (20:24)
[2022-05-13] MEDS: atenoloL 50 MG TAB PO SCH (20:24)
[2022-05-13] MEDS: MULTIVITAMINS, THERA 1 EACH TAB PO SCH (20:24)
[2022-05-14] MEDS: ACETAMINOPHEN TAB 325 MG TAB PO PRN ×2 (02:02→08:34)
[2022-05-14] MEDS: ALPRAZolam 0.25 MG TAB PO PRN ×2 (02:02→18:02)
[2022-05-14] MEDS: HEPARIN SODIUM,PORCINE/PF 5,000 UNIT/0.5 ML SYRINGE SQ SCH ×2 (08:31→20:03)
[2022-05-14] MEDS: PANTOPRAZOLE 40 MG TABLET PO SCH ×2 (08:31→20:04)
[2022-05-14 09:26] LABS: Basophils # (A) 0.02 X 10*3/uL (0.00-0.10); Basophils % (A) 0.5 %; Eosinophils # (A) 0.18 X 10*3/uL (0.04-0.35); Eosinophils % (A) 4.3 %; HCT 35.6 % (37.2-46.3); Immature Grans, Automated 0.2 %; Lymphocytes # (A) 1.13 X 10*3/uL (0.90-5.00); Lymphocytes % (A) 27.3 %; MCHC 30.9 g/dL (32.0-37.0); Mean Platelet Volume 10.6 fL (9.5-12.2); Monocytes # (A) 0.61 X 10*3/uL (0.20-1.00); Monocytes % (A) 14.7 %; NRBC Per 100 WBC 0 /100 WBCS (0.0-0.0); Neutrophils # (A) 2.19 X 10*3/uL (1.80-7.70); Platelet Count 150 X 10*3/uL (140-440); RBC 3.67 X 10*6/uL (4.10-5.20); WBC 4.14 X 10*3/uL (4.50-10.00)
--- NOTE | 2022-05-14 09:27 | US ---
EXAMINATION TYPE: US liver DATE OF EXAM: 05/14/2022 COMPARISON: NONE CLINICAL HISTORY: high liver enzymes. TECHNIQUE: Multiple sonographic images of the right upper quadrant are obtained. FINDINGS: EXAM MEASUREMENTS: Liver Length: 13.0 cm Gallbladder Wall: Surgically absent CBD: 0.4 cm Right Kidney: 10.0 x 4.7 x 4.5 cm FLAT KNITTER NOTES: Pancreas: wnl as seen somewhat obscured by overlying bowel gas Liver: wnl Gallbladder: Surgically absent Evidence for sonographic Shirley's sign: no CBD: wnl Right Kidney: hydronephrosis with hydroureter IMPRESSION: 1. Large Right hydronephrosis.
[2022-05-14 10:01] LABS: Magnesium 2.1 mg/dL (1.5-2.4)
[2022-05-14 12:03] LABS: Albumin 3.6 g/dL (3.8-4.9); Albumin/Globulin Ratio 1.95 (1.60-3.17); Anion Gap 7.6 mmol/L (10.00-18.00); BUN/Creat Ratio 17.55 Ratio (12.00-20.00); Bilirubin, Conjugated 0.2 mg/dL (0.20-0.40); Bilirubin,Unconjugated 0.53 mg/dL (0.20-1.00); Blood Urea Nitrogen 27.9 mg/dL (9.0-27.0); Calcium 9.2 mg/dL (8.7-10.3); Carbon Dioxide 21.3 mmol/L (20.0-27.5); Globulin 1.9 g/dL (1.6-3.3); Non-African American GFR(CKD) 29.3 (60.0-200.0); Potassium 4.3 mmol/L (3.5-5.5); Total Bilirubin 0.7 mg/dL (0.30-1.20); Total Protein 5.5 g/dL (6.2-8.2)
--- NOTE | 2022-05-14 13:17 | P.PN ---
Subjective Progress Note Date: 05/14/22 Follow-up for acute kidney injury. Objective - Vital Signs Vital signs: Vital Signs Temp 98.1 F 05/14/22 08:00 Pulse 63 05/14/22 08:00 Resp 16 05/14/22 08:00 BP 116/55 05/14/22 08:00 Pulse Ox 95 05/14/22 08:00 FiO2 Intake & Output 05/13/22 05/14/22 05/14/22 18:59 06:59 18:59 Weight 76.5 kg Other: Voiding Method Toilet Toilet Toilet # Voids 3 1 # Bowel Movements 0 - Exam No acute distress S1-S2 heard Lungs clear Edema - Labs CBC & Chem 7: 05/14/22 06:10 05/14/22 06:10 Labs: Abnormal Lab Results - Last 24 Hours (Table) 05/14/22 05/14/22 Range/Units 06:10 06:10 WBC 4.14 L (4.50-10.00) X 10*3/uL RBC 3.67 L (4.10-5.20) X 10*6/uL Hgb 11.0 L (12.0-15.0) g/dL Hct 35.6 L (37.2-46.3) % MCHC 30.9 L (32.0-37.0) g/dL Anion Gap 7.60 L (10.00-18.00) mmol/L BUN 27.9 H (9.0-27.0) mg/dL Creatinine 1.6 H (0.6-1.5) mg/dL Est GFR (CKD-EPI)AfAm 34.0 L (60.0-200.0) Est GFR (CKD-EPI)NonAf 29.3 L (60.0-200.0) AST 49 H (13-35) U/L ALT 130 H (8-44) U/L Total Protein 5.5 L (6.2-8.2) g/dL Albumin 3.6 L (3.8-4.9) g/dL Assessment and Plan Assessment: #1 acute kidney injury/progressive chronic kidney disease. -Baseline creatinine 1.2 MG per DL in 2017. #2 nonobstructive renal calculi. #3 low normal blood pressures. #4 edema Plan: #1 renal function stable and improving. #2 add Lasix 20 mg by mouth daily #3 avoid nephrotoxic agents.
[2022-05-14] MEDS: traMADol 50 MG TAB PO PRN (17:01)
--- NOTE | 2022-05-14 19:12 | P.PN ---
Subjective This is a pleasant 86 years old female with past medical history of hypertension, hyperlipidemia, chronic heart failure, coronary artery disease, GE RD, osteoarthritis spinal stenosis and sciatica, sleep apnea Patient presents because of right flank pain of one-day duration, pain was severe about 10/10. Imaging showing right ureteral stone. However her pain is completely resolved now is 0/10. She is not sure if he passed a stone or not however she's been evaluated by urologist Dr. Castro who cleared her for discharge today. Patient was informed about her elevated creatinine, with instruction to stop NSAIDs including Voltaren at home and she verbalized understanding and acceptance Vitals are stable. Labs including CBC is unremarkable. Creatinine is elevated at 1.5. Baseline 1.0-1.1. Mildly elevated liver enzymes AST 44 and ALT 36 with normal bilirubin at 1.0. CT of the abdomen and pelvis: 0.4 cm distal ureteral stone on the right side with additional 0.4 cm calcification of the right ureterovesical junction. Left renal cyst, patient nonobstructing left renal stone KUB: Non obstructive gas pattern. Hip osteoarthritis, renal stones as above In the emergency room patient received normal saline, Toradol, morphine and Zofran. Urologist been consulted 05/13/2022 Patient is awake but lethargic, she answers questions appropriately. Her blood pressure is improved, after 1 dose of midodrine. She received 1 dose of Lasix today. Her creatinine was still elevated to 1.7 from acute kidney injury versus progressive chronic kidney disease. Liver enzymes also worsened, we going to check liver ultrasound. 05/14/2022 Her right-sided abdominal pain she was complaining of yesterday has resolved today, however her liver ultrasound showing gallbladder surgically absent but there is evidence of right hydronephrosis. The patient admitted with right nonobstructive ureteral stone 0.4 cm and has been already evaluated by urologist but it looks like now she is developing hydronephrosis, I informed the bedside nurse to contact the urologist about the new finding. Liver enzymes trending down slightly today. However patient is complaining from left sciatica pain for which we started her on Ultram as well as Tylenol when necessary in regard to follow-up. Creatinine 1.6. Hemodynamically stable final inspector paper input is appreciated, p atient is started on Lasix 20 mg by mouth daily Objective - Vital Signs Vital signs: Vital Signs Temp 98.1 F 05/14/22 08:00 Pulse 63 05/14/22 08:00 Resp 16 05/14/22 08:00 BP 116/55 05/14/22 08:00 Pulse Ox 95 05/14/22 08:00 FiO2 Intake & Output 05/13/22 05/14/22 05/14/22 18:59 06:59 18:59 Weight 76.5 kg Other: Voiding Method Toilet Toilet # Voids 3 1 # Bowel Movements 0 - Exam GENERAL: The patient is alert and oriented x3, not in any acute distress. Well developed, well nourished. HEENT: Pupils are round and equally reacting to light. EOMI. No scleral icterus. No conjunctival pallor. Normocephalic, atraumatic. No pharyngeal erythema. No thyromegaly. CARDIOVASCULAR: S1 and S2 present. No murmurs, rubs, or gallops. PULMONARY: Chest is clear to auscultation, no wheezing or crackles. ABDOMEN: Soft, nontender, nondistended, normoactive bowel sounds. No palpable organomegaly. MUSCULOSKELETAL: No joint swelling or deformity. EXTREMITIES: No cyanosis, clubbing, or pedal edema. NEUROLOGICAL: Gross neurological examination did not reveal any focal deficits. SKIN: No rashes. no petechiae. - Labs CBC & Chem 7: 05/14/22 06:10 05/14/22 06:10 Labs: Abnormal Lab Results - Last 24 Hours (Table) 05/14/22 05/14/22 Range/Units 06:10 06:10 WBC 4.14 L (4.50-10.00) X 10*3/uL RBC 3.67 L (4.10-5.20) X 10*6/uL Hgb 11.0 L (12.0-15.0) g/dL Hct 35.6 L (37.2-46.3) % MCHC 30.9 L (32.0-37.0) g/dL Anion Gap 7.60 L (10.00-18.00) mmol/L BUN 27.9 H (9.0-27.0) mg/dL Creatinine 1.6 H (0.6-1.5) mg/dL Est GFR (CKD-EPI)AfAm 34.0 L (60.0-200.0) Est GFR (CKD-EPI)NonAf 29.3 L (60.0-200.0) AST 49 H (13-35) U/L ALT 130 H (8-44) U/L Total Protein 5.5 L (6.2-8.2) g/dL Albumin 3.6 L (3.8-4.9) g/dL Assessment and Plan Assessment: Right renal colic with CT of the abdomen showing 0.4 right ureteral stone Right hydronephrosis acute kidney injury, mild. Secondary to above. Versus worsening chronic kidney disease stage III. Worsening liver enzymes Hypertension Hyperlipidemia Bilateral nephrolithiasis Chronic heart failure, unknown ejection fraction History of GERD History of posterior arthritis History of CHF History of spinal stenosis and sciatica History of sleep apnea Plan: This is a pleasant 86 years old female who presents with right ureteral stone and right colic. Elevated liver enzymes Contact urology for new right hydronephrosis Continue with Lasix Nephrology input is appreciatedt Urologic already evaluated the patient. Monitor labs Labs and medication were reviewed.. Continue same treatment. Continue with symptomatic treatment. Resume home medication. Monitor lytes and vitals. DVT and GI prophylaxis. Further recommendations depends on the clinical course of the patient DVT prophylaxis: Subcutaneous heparin GI Prophylaxis: Pepcid
[2022-05-14] MEDS: ASPIRIN 81 MG PO SCH (20:03)
[2022-05-14] MEDS: MULTIVITAMINS, THERA 1 EACH TAB PO SCH (20:03)
[2022-05-14] MEDS: atenoloL 50 MG TAB PO SCH (20:03)
[2022-05-14] MEDS: LORATADINE 10 MG TAB PO SCH (20:04)
[2022-05-14] MEDS: ATORVASTATIN 10 MG TAB PO SCH (20:04)
[2022-05-15] MEDS: traMADol 50 MG TAB PO PRN (01:01)
[2022-05-15] MEDS: PANTOPRAZOLE 40 MG TABLET PO SCH ×2 (07:55→21:52)
[2022-05-15] MEDS: HEPARIN SODIUM,PORCINE/PF 5,000 UNIT/0.5 ML SYRINGE SQ SCH ×2 (07:55→21:51)
[2022-05-15] MEDS ORDERED: FUROSEMIDE 20 MG TAB PO SCH (09:00)
[2022-05-15 09:18] LABS: Basophils # (A) 0.04 X 10*3/uL (0.00-0.10); Basophils % (A) 0.8 %; Eosinophils # (A) 0.21 X 10*3/uL (0.04-0.35); Eosinophils % (A) 4.2 %; HCT 37.2 % (37.2-46.3); HGB 11.5 g/dL (12.0-15.0); Immature Grans, Automated 0.2 %; Lymphocytes # (A) 1.53 X 10*3/uL (0.90-5.00); Lymphocytes % (A) 30.8 %; MCH 29.4 pg (27.0-32.0); MCHC 30.9 g/dL (32.0-37.0); MCV 95.1 fL (80.0-97.0); Mean Platelet Volume 11.2 fL (9.5-12.2); Monocytes # (A) 0.63 X 10*3/uL (0.20-1.00); Monocytes % (A) 12.7 %; NRBC Per 100 WBC 0 /100 WBCS (0.0-0.0); Neutrophils # (A) 2.54 X 10*3/uL (1.80-7.70); Neutrophils % (A) 51.3 %; Platelet Count 152 X 10*3/uL (140-440); RBC 3.91 X 10*6/uL (4.10-5.20); WBC 4.96 X 10*3/uL (4.50-10.00)
[2022-05-15 09:38] LABS: ALT 105 U/L (8-44); AST 34 U/L (13-35); African American GFR (CKD) 36.4 (60.0-200.0); Albumin 3.6 g/dL (3.8-4.9); Albumin/Globulin Ratio 1.71 (1.60-3.17); Alkaline Phosphatase 80 U/L (41-126); BUN/Creat Ratio 19.27 Ratio (12.00-20.00); Bilirubin, Conjugated <0.20 mg/dL (0.20-0.40); Blood Urea Nitrogen 28.9 mg/dL (9.0-27.0); Calcium 9.3 mg/dL (8.7-10.3); Chloride 109 mmol/L (96-109); Globulin 2.1 g/dL (1.6-3.3); Glucose 84 mg/dL (70-110); Magnesium 2.1 mg/dL (1.5-2.4); Non-African American GFR(CKD) 31.4 (60.0-200.0); Potassium 4.3 mmol/L (3.5-5.5); Sodium 142 mmol/L (135-145); Total Protein 5.7 g/dL (6.2-8.2)
--- NOTE | 2022-05-15 10:27 | P.PN ---
Subjective Patient is seen in follow-up for acute kidney injury on chronic kidney disease. Renal function slightly better. Has been voiding. No vomiting or diarrhea. Denies abdominal pain. Oral intake fair. Hemodynamically stable. Vital signs are stable. General: Awake. No acute distress. HEENT: Head exam is unremarkable. LUNGS: Breath sounds decreased. HEART: Rate and Rhythm are regular. ABDOMEN: Soft, no distention. EXTREMITITES: No edema. Objective - Vital Signs Vital signs: Vital Signs Temp 98.0 F 05/15/22 07:37 Pulse 61 05/15/22 07:37 Resp 23 05/15/22 07:37 BP 150/70 05/15/22 07:37 Pulse Ox 95 05/15/22 07:37 FiO2 Intake & Output 05/14/22 05/15/22 05/15/22 18:59 06:59 18:59 Weight 76.5 kg Other: Voiding Method Toilet Toilet # Voids 3 2 # Bowel Movements 0 - Labs CBC & Chem 7: 05/15/22 06:00 05/15/22 06:00 Labs: Abnormal Lab Results - Last 24 Hours (Table) 05/14/22 05/15/22 05/15/22 Range/Units 06:10 06:00 06:00 RBC 3.91 L (4.10-5.20) X 10*6/uL Hgb 11.5 L (12.0-15.0) g/dL MCHC 30.9 L (32.0-37.0) g/dL Anion Gap 7.60 L (10.00-18.00) mmol/L BUN 27.9 H 28.9 H (9.0-27.0) mg/dL Creatinine 1.6 H (0.6-1.5) mg/dL Est GFR (CKD-EPI)AfAm 34.0 L 36.4 L (60.0-200.0) Est GFR (CKD-EPI)NonAf 29.3 L 31.4 L (60.0-200.0) Conjugated Bilirubin <0.20 L (0.20-0.40) mg/dL AST 49 H (13-35) U/L ALT 130 H 105 H (8-44) U/L Total Protein 5.5 L 5.7 L (6.2-8.2) g/dL Albumin 3.6 L 3.6 L (3.8-4.9) g/dL Assessment and Plan Plan: Assessment: 1. Acute kidney injury mostly prerenal improved with IV hydration. Creatinine peaked at 1.8 for this admission and is 1.5 today. 2. Right hydronephrosis and nephrolithiasis. Urology following. No interventions planned at this time. 3. Chronic kidney disease stage IIIA with baseline creatinine near 1.1 in September 2017. Etiology is likely nephrosclerosis. 4. Lower extremity edema maintained on oral Lasix. Plan: Change Lasix to chlorthalidone due to nephrolithiasis. Avoid nephrotoxins. Follow up outpatient 1 week post discharge. Further workup of kidney stones outpatient. Repeat BMP and magnesium level 2-3 days postdischarge.
[2022-05-15] MEDS: ACETAMINOPHEN TAB 325 MG TAB PO PRN (14:15)
[2022-05-15] MEDS: ALPRAZolam 0.25 MG TAB PO PRN (14:18)
--- NOTE | 2022-05-15 17:38 | P.PN ---
Subjective Progress Note Date: 05/15/22 The patient had a liver us and it still showed right hydronephrosis. With her cr still up at 1.6 I suspect that she still has a distal stone on the right. If her cr persists she may need a ureteroscopy with stone manipulation on the right. Objective - Vital Signs Vital signs: Vital Signs Temp 97.8 F 05/15/22 13:58 Pulse 68 05/15/22 13:58 Resp 22 05/15/22 13:58 BP 100/64 05/15/22 13:58 Pulse Ox 95 05/15/22 13:58 FiO2 Intake & Output 05/14/22 05/15/22 05/15/22 18:59 06:59 18:59 Intake Total 1080 Balance 1080 Weight 76.5 kg Intake: Oral 1080 Other: Voiding Method Toilet Toilet # Voids 3 2 5 # Bowel Movements 0 - Labs CBC & Chem 7: 05/15/22 06:00 05/15/22 06:00 Labs: Abnormal Lab Results - Last 24 Hours (Table) 05/15/22 05/15/22 Range/Units 06:00 06:00 RBC 3.91 L (4.10-5.20) X 10*6/uL Hgb 11.5 L (12.0-15.0) g/dL MCHC 30.9 L (32.0-37.0) g/dL BUN 28.9 H (9.0-27.0) mg/dL Est GFR (CKD-EPI)AfAm 36.4 L (60.0-200.0) Est GFR (CKD-EPI)NonAf 31.4 L (60.0-200.0) Conjugated Bilirubin <0.20 L (0.20-0.40) mg/dL ALT 105 H (8-44) U/L Total Protein 5.7 L (6.2-8.2) g/dL Albumin 3.6 L (3.8-4.9) g/dL
--- NOTE | 2022-05-15 21:16 | P.PN ---
Subjective This is a pleasant 86 years old female with past medical history of hypertension, hyperlipidemia, chronic heart failure, coronary artery disease, GE RD, osteoarthritis spinal stenosis and sciatica, sleep apnea Patient presents because of right flank pain of one-day duration, pain was severe about 10/10. Imaging showing right ureteral stone. However her pain is completely resolved now is 0/10. She is not sure if he passed a stone or not however she's been evaluated by urologist Dr. Castro who cleared her for discharge today. Patient was informed about her elevated creatinine, with instruction to stop NSAIDs including Voltaren at home and she verbalized understanding and acceptance Vitals are stable. Labs including CBC is unremarkable. Creatinine is elevated at 1.5. Baseline 1.0-1.1. Mildly elevated liver enzymes AST 44 and ALT 36 with normal bilirubin at 1.0. CT of the abdomen and pelvis: 0.4 cm distal ureteral stone on the right side with additional 0.4 cm calcification of the right ureterovesical junction. Left renal cyst, patient nonobstructing left renal stone KUB: Non obstructive gas pattern. Hip osteoarthritis, renal stones as above In the emergency room patient received normal saline, Toradol, morphine and Zofran. Urologist been consulted 05/13/2022 Patient is awake but lethargic, she answers questions appropriately. Her blood pressure is improved, after 1 dose of midodrine. She received 1 dose of Lasix today. Her creatinine was still elevated to 1.7 from acute kidney injury versus progressive chronic kidney disease. Liver enzymes also worsened, we going to check liver ultrasound. 05/14/2022 Her right-sided abdominal pain she was complaining of yesterday has resolved today, however her liver ultrasound showing gallbladder surgically absent but there is evidence of right hydronephrosis. The patient admitted with right nonobstructive ureteral stone 0.4 cm and has been already evaluated by urologist but it looks like now she is developing hydronephrosis, I informed the bedside nurse to contact the urologist about the new finding. Liver enzymes trending down slightly today. However patient is complaining from left sciatica pain for which we started her on Ultram as well as Tylenol when necessary in regard to follow-up. Creatinine 1.6. 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 Left sciatic pain is also improving. Patient is developing right-sided hydronephrosis from her right ureteral stone, urologist evaluation is appreciated and patient may need ureteroscopy and stone manipulation if elevated creatinine and persistent. Creatinine slightly down today to 1.5. Lasix was changed to chlorthalidone Patient will need follow-up as an outpatient with nephrology for stone workup Home health care is ordered Liver enzymes improve Objective - Vital Signs Vital signs: Vital Signs Temp 98.0 F 05/15/22 07:37 Pulse 61 05/15/22 07:37 Resp 23 05/15/22 07:37 BP 150/70 05/15/22 07:37 Pulse Ox 95 05/15/22 07:37 FiO2 Intake & Output 05/14/22 05/15/22 05/15/22 18:59 06:59 18:59 Weight 76.5 kg Other: Voiding Method Toilet Toilet # Voids 3 2 # Bowel Movements 0 - Exam GENERAL: The patient is alert and oriented x3, not in any acute distress. Well developed, well nourished. HEENT: Pupils are round and equally reacting to light. EOMI. No scleral icterus. No conjunctival pallor. Normocephalic, atraumatic. No pharyngeal erythema. No thyromegaly. CARDIOVASCULAR: S1 and S2 present. No murmurs, rubs, or gallops. PULMONARY: Chest is clear to auscultation, no wheezing or crackles. ABDOMEN: Soft, nontender, nondistended, normoactive bowel sounds. No palpable organomegaly. MUSCULOSKELETAL: No joint swelling or deformity. EXTREMITIES: No cyanosis, clubbing, or pedal edema. NEUROLOGICAL: Gross neurological examination did not reveal any focal deficits. SKIN: No rashes. no petechiae. - Labs CBC & Chem 7: 05/15/22 06:00 05/15/22 06:00 Labs: Abnormal Lab Results - Last 24 Hours (Table) 05/15/22 05/15/22 Range/Units 06:00 06:00 RBC 3.91 L (4.10-5.20) X 10*6/uL Hgb 11.5 L (12.0-15.0) g/dL MCHC 30.9 L (32.0-37.0) g/dL BUN 28.9 H (9.0-27.0) mg/dL Est GFR (CKD-EPI)AfAm 36.4 L (60.0-200.0) Est GFR (CKD-EPI)NonAf 31.4 L (60.0-200.0) Conjugated Bilirubin <0.20 L (0.20-0.40) mg/dL ALT 105 H (8-44) U/L Total Protein 5.7 L (6.2-8.2) g/dL Albumin 3.6 L (3.8-4.9) g/dL Assessment and Plan Assessment: Right renal colic with CT of the abdomen showing 0.4 right ureteral stone Right hydronephrosis acute kidney injury, mild. Secondary to above. Versus worsening chronic kidney disease stage III. Worsening liver enzymes Hypertension Hyperlipidemia Bilateral nephrolithiasis Chronic heart failure, unknown ejection fraction History of GERD History of posterior arthritis History of CHF History of spinal stenosis and sciatica History of sleep apnea Plan: This is a pleasant 86 years old female who presents with right ureteral stone and right colic. Elevated liver enzymes Contact urology for new right hydronephrosis. Patient may need stone removal Change Lasix to chlorthalidone Nephrology input is appreciated Home health care ordered Patient will need follow-up as an outpatient with nephrology and urology within 1 week Labs and medication were reviewed.. Continue same treatment. Continue with symptomatic treatment. Resume home medication. Monitor lytes and vitals. DVT and GI prophylaxis. Further recommendations depends on the clinical course of the patient DVT prophylaxis: Subcutaneous heparin GI Prophylaxis: Pepcid
[2022-05-15] MEDS: ASPIRIN 81 MG PO SCH (21:50)
[2022-05-15] MEDS: atenoloL 50 MG TAB PO SCH (21:50)
[2022-05-15] MEDS: MULTIVITAMINS, THERA 1 EACH TAB PO SCH (21:51)
[2022-05-15] MEDS: ATORVASTATIN 10 MG TAB PO SCH (21:51)
[2022-05-15] MEDS: LORATADINE 10 MG TAB PO SCH (21:51)
[2022-05-16 03:00] VITALS: RESP 17
[2022-05-16 06:34] LABS: African American GFR (CKD) 40 (>60 ml/min/1.73 sqM); Anion Gap 6 mmol/L; Blood Urea Nitrogen 30 mg/dL (7-17); Calcium 9.2 mg/dL (8.4-10.2); Carbon Dioxide 26 mmol/L (22-30); Chloride 108 mmol/L (98-107); Glucose 90 mg/dL (74-99); Non-African American GFR(CKD) 35 (>60 ml/min/1.73 sqM); Potassium 4.5 mmol/L (3.5-5.1); Sodium 140 mmol/L (137-145)
[2022-05-16 07:54] VITALS: TEMP 98.1
[2022-05-16] MEDS: traMADol 50 MG TAB PO PRN (07:56)
[2022-05-16] MEDS: HEPARIN SODIUM,PORCINE/PF 5,000 UNIT/0.5 ML SYRINGE SQ SCH (07:56)
[2022-05-16] MEDS: PANTOPRAZOLE 40 MG TABLET PO SCH (07:56)
--- NOTE | 2022-05-16 08:09 | P.PN ---
Subjective Progress Note Date: 05/16/22 The patient is in the hospital with a right ureteral stone. She became asx but her kidney function remained off[cr 1.5-1.7] Her baseline is normal AN us for liver issues showed persistent hydro despite being asx. I spoke with her this am and explaied that if the cr remains off I might have to remove the stone in order to resolve that issue. Objective - Vital Signs Vital signs: Vital Signs Temp 98.1 F 05/16/22 07:53 Pulse 63 05/16/22 07:53 Resp 17 05/16/22 02:01 BP 163/83 05/16/22 07:53 Pulse Ox 95 05/16/22 07:53 FiO2 Intake & Output 05/15/22 05/16/22 05/16/22 18:59 06:59 18:59 Intake Total 1080 Balance 1080 Weight 76.5 kg Intake: Oral 1080 Other: Voiding Method Toilet # Voids 5 - Labs CBC & Chem 7: 05/15/22 06:00 05/16/22 06:04 Labs: Abnormal Lab Results - Last 24 Hours (Table) 05/15/22 05/15/22 05/16/22 Range/Units 06:00 06:00 06:04 RBC 3.91 L (4.10-5.20) X 10*6/uL Hgb 11.5 L (12.0-15.0) g/dL MCHC 30.9 L (32.0-37.0) g/dL Chloride 108 H (98-107) mmol/L BUN 28.9 H 30 H (9.0-27.0) mg/dL Creatinine 1.39 H (0.52-1.04) mg/dL Est GFR (CKD-EPI)AfAm 36.4 L (60.0-200.0) Est GFR (CKD-EPI)NonAf 31.4 L (60.0-200.0) Conjugated Bilirubin <0.20 L (0.20-0.40) mg/dL ALT 105 H (8-44) U/L Total Protein 5.7 L (6.2-8.2) g/dL Albumin 3.6 L (3.8-4.9) g/dL
[2022-05-16] MEDS ORDERED: CHLORTHALIDONE 25 MG TAB PO SCH (09:00)
--- NOTE | 2022-05-16 09:58 | P.PN ---
Progress Note - Text Progress Note Date: 05/16/22 the kidney function continues to improve. will hold off on any surgery for now
--- NOTE | 2022-05-16 09:59 | P.PN ---
Subjective Patient is seen in follow-up for acute kidney injury on chronic kidney disease. Renal function improving. Has been voiding. No vomiting or diarrhea. Denies abdominal pain. Oral intake fair. Hemodynamically stable. Vital signs are stable. General: Awake. No acute distress. HEENT: Head exam is unremarkable. LUNGS: Breath sounds decreased. HEART: Rate and Rhythm are regular. ABDOMEN: Soft, no distention. EXTREMITITES: No edema. Objective - Vital Signs Vital signs: Vital Signs Temp 98.1 F 05/16/22 07:53 Pulse 63 05/16/22 07:53 Resp 17 05/16/22 02:01 BP 163/83 05/16/22 07:53 Pulse Ox 95 05/16/22 07:53 FiO2 Intake & Output 05/15/22 05/16/22 05/16/22 18:59 06:59 18:59 Intake Total 1080 Balance 1080 Weight 76.5 kg Intake: Oral 1080 Other: Voiding Method Toilet # Voids 5 - Labs CBC & Chem 7: 05/15/22 06:00 05/16/22 06:04 Labs: Abnormal Lab Results - Last 24 Hours (Table) 05/16/22 Range/Units 06:04 Chloride 108 H (98-107) mmol/L BUN 30 H (7-17) mg/dL Creatinine 1.39 H (0.52-1.04) mg/dL Assessment and Plan Plan: Assessment: 1. Acute kidney injury mostly prerenal improved with IV hydration. Creatinine peaked at 1.8 for this admission and is 1.39 today. 2. Right hydronephrosis and nephrolithiasis. Urology following. No interventions planned at this time. 3. Chronic kidney disease stage IIIA with baseline creatinine near 1.1 in 2016. Etiology is likely nephrosclerosis. 4. Lower extremity edema maintained on chlorthalidone. Plan: Maintain chlorthalidone. Avoid nephrotoxins. Follow up outpatient 1 week post discharge. Further workup of kidney stones outpatient. Repeat BMP and magnesium level 2-3 days postdischarge.
[2022-05-16] MEDS ORDERED: NA PHOS,M-B/NA PHOS,DI-BA 133 ML ENEMA RECTAL ONE (12:24)
[2022-05-16] MEDS ORDERED: SENNOSIDES 8.6 MG TAB PO SCH (12:30)
[2022-05-16] MEDS ORDERED: polyethylene glycoL 3350 17 GM POWD.PACK PO SCH (12:30)
--- NOTE | 2022-05-16 13:12 | XR ---
KUB HISTORY: Abdominal pain, constipation KUB on 2 images correlated prior KUB 05/11/2022 Patient is rotated. Bone mineralization is reduced. Arthropathy noted within the hips. There is a spi nal curvature with associated degenerative disc change. Surgical clip is again noted in left hemipelv is. Bowel gas may obscure underlying detail. Surgical clips present in the right upper quadrant. Calc ification in the left paraspinal region is stable measuring 4 mm. IMPRESSION: No significant interval change. Left-sided nephrolithiasis.
[2022-05-16] MEDS: ALPRAZolam 0.25 MG TAB PO PRN (14:44)
[2022-05-16 15:49] VITALS: BP 125/60; PULSE 67
--- NOTE | 2022-05-17 02:14 | P.DS ---
Providers Date of admission: 05/11/22 19:52 Expected date of discharge: 05/16/22 Attending physician: Jhony Ventura Consults: 05/11/22 19:52 Consult Physician Routine Consulting Provider: Jann Singh Consult Reason/Comments: Renal colic, kidney stone Do you want consulting provider notified?: Already Contacted 05/12/22 18:06 Consult Physician Urgent Consulting Provider: Luann Byrd Consult Reason/Comments: jocy Do you want consulting provider notified?: Yes Primary care physician: Low Romero [facility] Course: Final diagnosis Right renal colic with CT of the abdomen showing 0.4 right ureteral stone Right hydronephrosis acute kidney injury, mild. Secondary to above. Versus worsening chronic kidney disease stage III. Worsening liver enzymes Hypertension Hyperlipidemia Bilateral nephrolithiasis Chronic heart failure, unknown ejection fraction History of GERD History of posterior arthritis History of CHF History of spinal stenosis and sciatica History of sleep apnea full code Discharge disposition Patient is being discharged in a stable condition with guarded prognosis to home. Patient will follow-up with Dr. Romero in the outpatient setting upon discharge. Patient is to also follow up with urology and nephrology as scheduled. Patient to continued chlorthalidone. Total time taken is greater than 35 minutes. Hospital course This is a 86-year-old female who was recently admitted with right ureteral stone and jocy and was being closely monitored. Kidney functions trending down and nephro recommending repeat labs and close outpatient follow up. Patient to follow up with urology as well. Patient having some constipation and no bowel movement and have given bowel regimen and was able to have a bowel movement prior to discharge. Patient reports to feeling much better and requesting to go home. Currently no reports of chest pain, shortness of breath, or palpitations. Patient is afebrile. No reports of nausea or vomiting and patient is tolerating diet. Patient will be discharged home today. Physical exam: Gen: This is a 86 year old who is awake, alert and oriented x3. Well developed, well nourished. HEENT: Head is atraumatic, normocephalic. Pupils equal, round. Sclerae is anicteric. NECK: Supple. No JVD. No lymphadenopathy. No thyromegaly. LUNGS: Clear to auscultation. No wheezes or rhonchi. No intercostal retractions. HEART: Regular rate and rhythm. No murmur. ABDOMEN: Soft. obese. Bowel sounds are present. No masses. No tenderness. EXTREMITIES: No pedal edema. No calf tenderness. NEUROLOGICAL: Patient is awake, alert and oriented x3. Cranial nerves 2 through 12 are grossly intact. Please refer to medication reconciliation sheet for a list of medications. The impression and plan of care has been dictated by Mraiajose Collins, Nurse Practitioner as directed. Dr. Slade MD I have performed a history and examination and MDM of this patient, discussed the same with the dictator, and agree with the dictator's assessment and plan as written ,documented as a scribe. Based on total visit time, I have performed more than 50% of the visit. Patient Condition at Discharge: Fair Plan - Discharge Summary Discharge Rx Participant: No New Discharge Prescriptions: New traMADol HCl [Ultram] 25 mg PO QID PRN #12 tab PRN Reason: Moderate Pain WHEN PO Chlorthalidone [Hygroton] 25 mg PO DAILY 30 Days #30 tab Continue Aspirin EC [Ecotrin Low Dose] 81 mg PO HS ALPRAZolam [Xanax] 0.25 mg PO TID PRN PRN Reason: Anxiety Loratadine [Claritin] 10 mg PO HS Atorvastatin Calcium [Lipitor] 10 mg PO HS atenoloL [Tenormin] 50 mg PO HS Vit C/E/Zn/Coppr/Lutein/Zeaxan [Preservision Areds 2 Softgel] 1 cap PO BID Ergocalciferol [Vitamin D2 (DRISDOL)] 50,000 unit PO SERNA Multivit-Min/Iron/Folic/Lutein [Centrum Silver Women Tablet] 1 tab PO HS Albuterol Sulfate [Albuterol Sulfate Hfa] 2 puff PO RT-Q6H PRN PRN Reason: Shortness Of Breath Pantoprazole Sodium [Protonix] 40 mg PO BID Discontinued Diclofenac Sodium [Voltaren] 75 mg PO BID Calcium Carbonate [Calcium] 600 mg PO HS Potassium Chloride ER [K-Dur 10] 20 meq PO HS Losartan Potassium [Cozaar] 50 mg PO HS Discharge Medication List ALPRAZolam [Xanax] 0.25 mg PO TID PRN 10/28/15 [History] Aspirin EC [Ecotrin Low Dose] 81 mg PO HS 10/28/15 [History] Atorvastatin Calcium [Lipitor] 10 mg PO HS 10/28/15 [History] Loratadine [Claritin] 10 mg PO HS 10/28/15 [History] atenoloL [Tenormin] 50 mg PO HS 10/28/15 [History] Ergocalciferol [Vitamin D2 (DRISDOL)] 50,000 unit PO SERNA 09/23/17 [History] Vit C/E/Zn/Coppr/Lutein/Zeaxan [Preservision Areds 2 Softgel] 1 cap PO BID 09/23/17 [History] Albuterol Sulfate [Albuterol Sulfate Hfa] 2 puff PO RT-Q6H PRN 05/11/22 [History] Multivit-Min/Iron/Folic/Lutein [Centrum Silver Women Tablet] 1 tab PO HS 05/11/22 [History] Pantoprazole Sodium [Protonix] 40 mg PO BID 05/11/22 [History] Chlorthalidone [Hygroton] 25 mg PO DAILY 30 Days #30 tab 05/16/22 [Rx] traMADol HCl [Ultram] 25 mg PO QID PRN #12 tab 05/16/22 [Rx] Follow up Appointment(s)/Referral(s): Luann Byrd MD [STAFF PHYSICIAN] - 1 Week (office will call with appointment time) Low Romero MD [Primary Care Provider] - 05/22/22 8:45 am (If This is too early please call office to rescheule) Jann Singh MD [STAFF PHYSICIAN] - 2 Weeks (office will call to schedule appointment) Ambulatory/Diagnostic Orders: Complete Blood Count w/diff [LAB.AMB] Time Frame: 3 Days, Location: None Selected Patient Instructions/Handouts: Kidney Stones (DC) Activity/Diet/Wound Care/Special Instructions: Heart healthy diet Activity Limited until follow-up Follow-up with nephrology in one week Follow-up with urology as discussed Continue medications as prescribed Recommend repeat labs of CBC and BMP and magnesium in the next 2-3 days Discharge Disposition: HOME SELF-CARE
== END 2022-05-16 17:03 | disposition home or self-care (01) | DRG 694 ==
LOC: EC 14:39 → 4SSUR 19:52
PROVIDERS: ADMIT Hospitalist; ATTEND Hospitalist
DX: N13.2 Hydronephrosis with renal and ureteral calculous obstruction (principal); I13.0 Hypertensive heart and chronic kidney disease with heart failure and stage 1 through stage 4 chronic kidney disease, or unspecified chronic kidney disease; N17.9 Acute kidney failure, unspecified; N18.31 Chronic kidney disease, stage 3a; I50.9 Heart failure, unspecified; E78.5 Hyperlipidemia, unspecified; E86.0 Dehydration; F32.A Depression, unspecified; F41.9 Anxiety disorder, unspecified; H54.7 Unspecified visual loss; H91.90 Unspecified hearing loss, unspecified ear; I25.10 Atherosclerotic heart disease of native coronary artery without angina pectoris; R60.9 Edema, unspecified; K59.00 Constipation, unspecified; M16.10 Unilateral primary osteoarthritis, unspecified hip; M54.32 Sciatica, left side; N28.1 Cyst of kidney, acquired; Z79.899 Other long term (current) drug therapy; Z82.0 Family history of epilepsy and other diseases of the nervous system; Z82.3 Family history of stroke; Z82.49 Family history of ischemic heart disease and other diseases of the circulatory system; Z87.442 Personal history of urinary calculi; Z87.891 Personal history of nicotine dependence; Z90.49 Acquired absence of other specified parts of digestive tract; Z90.710 Acquired absence of both cervix and uterus; Z98.42 Cataract extraction status, left eye; Z98.41 Cataract extraction status, right eye; Z96.1 Presence of intraocular lens; Z91.041 Radiographic dye allergy status; Z91.013 Allergy to seafood
CPT/HCPCS: 36415; 74018; 74176; 76705; 80048; 80053; 80076; 82150; 83690; 83735; 85025; 96361; 96374; 96375; 96376; 99285

== ENCOUNTER 2024-08-25 15:26 | Emergency (ER) | payer MEDICARE ==
--- NOTE | 2024-08-25 16:24 | XR ---
EXAMINATION TYPE: XR chest 2V DATE OF EXAM: 08/25/2024 3:54 PM COMPARISON: None. CLINICAL INDICATION: Female, 88 years old with history of cough sob, TECHNIQUE: XR chest 2V view(s) obtained. FINDINGS: The heart size is normal. The pulmonary vasculature is normal. The lungs are clear. IMPRESSION: 1. No acute pulmonary process. [facility], , 08/25/2024 4:22 PM
--- NOTE | 2024-08-25 16:47 | ED ---
General Adult HPI - General Source: patient, family Mode of arrival: wheelchair Limitations: no limitations <Keagan Oshea - Last Filed: 08/25/24 16:47> - General Source: patient, family, RN notes reviewed Limitations: no limitations <Esau Pradhan - Last Filed: 08/25/24 18:41> - General Chief complaint: Recheck/Abnormal Lab/Rx Stated complaint: HTN Time Seen by Provider: 08/25/24 16:47 - History of Present Illness Initial comments: 88-year-old female presenting with chief complaint of elevated blood pressure. Patient states that at home her systolic pressure was 180. She was feeling anxious. She denies any chest pain, difficulty breathing, headache, blurry vision, abdominal pain, nausea, vomiting. States that she is feeling a bit better. She did take a 50 mg losartan around 2:30/3:00 (Keagan Oshea) Patient is an 88-year-old female present to the emergency department with concern for blood pressure. Patient took her blood pressure and was as high as 180/80. This made the patient feel nervous and stated that she needed to come to the hospital. Patient did have emergency blood pressure medicine that she did take at home prior to coming in and took a Xanax as well. Patient is symptom-free and continues to be symptom-free. No other concerns. No chest pain. (Esau Pradhan) - Related Data Home Medications Medication Instructions Recorded Confirmed ALPRAZolam [Xanax] 0.25 mg PO TID PRN 10/28/15 05/11/22 Aspirin EC [Ecotrin Low Dose] 81 mg PO HS 10/28/15 05/11/22 Atorvastatin Calcium [Lipitor] 10 mg PO HS 10/28/15 05/11/22 Loratadine [Claritin] 10 mg PO HS 10/28/15 05/11/22 atenoloL [Tenormin] 50 mg PO HS 10/28/15 05/11/22 Ergocalciferol [Vitamin D2 50,000 unit PO SERNA 09/23/17 05/11/22 (DRISDOL)] Vit C/E/Zn/Coppr/Lutein/Zeaxan 1 cap PO BID 09/23/17 05/11/22 [Preservision Areds 2 Softgel] Albuterol Sulfate [Albuterol 2 puff PO RT-Q6H PRN 05/11/22 05/11/22 Sulfate Hfa] Multivit-Min/Iron/Folic/Lutein 1 tab PO HS 05/11/22 05/11/22 [Centrum Silver Women Tablet] Pantoprazole Sodium [Protonix] 40 mg PO BID 05/11/22 05/11/22 Previous Rx's Medication Instructions Recorded Chlorthalidone [Hygroton] 25 mg PO DAILY 30 Days #30 tab 05/16/22 traMADol HCl [Ultram] 25 mg PO QID PRN #12 tab 05/16/22 Allergies Allergy/AdvReac Type Severity Reaction Status Date / Time Iodinated Contrast Media Allergy Unknown Verified 05/11/22 16:22 [Iodinated Contrast Media - IV Dye] shellfish derived [Shrimp] Allergy Unknown Verified 05/11/22 16:22 Review of Systems ROS Other: All systems not noted in ROS Statement are negative. <Keagan Oshea - Last Filed: 08/25/24 16:47> ROS Other: All systems not noted in ROS Statement are negative. Constitutional: Denies: fever Eyes: Denies: eye pain Respiratory: Denies: dyspnea Cardiovascular: Denies: chest pain Neurological: Denies: headache, weakness <Esau Pradhan - Last Filed: 08/25/24 18:41> ROS Statement: Those systems with pertinent positive or pertinent negative responses have been documented in the HPI. Past Medical History Past Medical History: Heart Failure, GERD/Reflux, Hearing Disorder / Deafness, Hyperlipidemia, Hypertension, Osteoarthritis (OA) Additional Past Medical History / Comment(s): SLEEP APNEA, jaundice in the 11th grade unsure of why, macular degeneration, Mitral valve issues - pt unsure if it is prolapsed, mild renal insufficency, scoliosis, spinal stenosis, sciatica History of Any Multi-Drug Resistant Organisms: None Reported Past Surgical History: Appendectomy, Cholecystectomy, Hysterectomy, Orthopedic Surgery Additional Past Surgical History / Comment(s): Bilateral cataract extraction and intraocular lens implants, right carpal tunnel release, epidural injections in the lumbar spine, colonoscopy 4 years ago with no abnormalities, left knee arthroscopy Past Anesthesia/Blood Transfusion Reactions: No Reported Reaction Past Psychological History: Anxiety, Depression Smoking Status: Former smoker Past Alcohol Use History: None Reported Past Drug Use History: None Reported - Past Family History Son(s) Additional Family Medical History / Comment(s): hemodialysis. Patient has a total of 3 sons. Father Family Medical History: CVA/TIA Additional Family Medical History / Comment(s): Father at age 77 status post several strokes. Mother Additional Family Medical History / Comment(s): Mother at age 86 from pneumonia. Sister(s) Additional Family Medical History / Comment(s): Patient has 3 sisters and one from cancer and one from a myocardial infarction with history of Parkinson's. Patient does not have any brothers. <Keagan Oshea - Last Filed: 08/25/24 16:47> General Exam Limitations: no limitations <Keagan Oshea - Last Filed: 08/25/24 16:47> Limitations: no limitations General appearance: alert, in no apparent distress Head exam: Present: normocephalic Eye exam: Present: normal appearance, PERRL, EOMI ENT exam: Present: normal oropharynx Neck exam: Present: normal inspection Respiratory exam: Present: normal lung sounds bilaterally Cardiovascular Exam: Present: regular rate, normal rhythm GI/Abdominal exam: Present: soft. Absent: tenderness, pulsatile mass Back exam: Present: normal inspection Neurological exam: Present: alert, CN II-XII intact. Absent: motor sensory deficit Expanded Neurological exam: Present: protecting the airway Speech: Present: fluid speech Cranial nerves: EOM's Intact: Normal Motor strength exam: RUE: 5, LUE: 5, RLE: 5, LLE: 5 Psychiatric exam: Present: normal affect, normal mood Skin exam: Present: normal color <Esau Pradhan - Last Filed: 08/25/24 18:41> - General Exam Comments Initial Comments: Visual Physical Exam Vital signs reviewed General: Well-appearing, nontoxic, no acute distress. Head: Normocephalic, atraumatic Eyes: PERRLA, EOMI ENT: Airway patent Chest: Nonlabored breathing Skin: No visual rash, normal skin tone Neuro: Alert and oriented 3 Musculoskeletal: No gross abnormalities (Keagan Oshea) Course Vital Signs 08/25/24 15:29 Temperature 97.9 F Pulse Rate 70 Respiratory 16 Rate Blood Pressure 168/84 O2 Sat by Pulse 96 Oximetry EKG Findings - EKG Results: EKG: interpreted by ERMD (LVH criteria. Inferior Q waves. Small lateral Q waves.), sinus rhythm, normal axis, normal ST/T <Esau Pradhan - Last Filed: 08/25/24 18:41> Medical Decision Making <Keagan Oshea - Last Filed: 08/25/24 16:47> <Esau Pradhan - Last Filed: 08/25/24 18:41> - Medical Decision Making I performed the quick note portion of this visit, electronically signed Keagan Oshea PA-C (Keagan Oshea) Was pt. sent in by a medical professional or institution (RYAN De Souza, ENVIRONMENTAL MARKETING REPRESENTATIVE, urgent care, hospital, or senior care...) When possible be specific @ -No Did you speak to anyone other than the patient for history (EMS, parent, family, police, friend...)? What history was obtained from this source @ -Son is present helps provide history including blood pressure reading Did you review nursing and triage notes (agree or disagree)? Why? @ -I reviewed and agree with nursing and triage notes Were old charts reviewed (outside hosp., previous admission, EMS record, old EKG, old radiological studies, urgent care reports/EKG's, senior care records)? Report findings @ -No old charts were reviewed Differential Diagnosis (chest pain, altered mental status, abdominal pain women, abdominal pain men, vaginal bleeding, weakness, fever, dyspnea, syncope, headache, dizziness, GI bleed, back pain, seizure, CVA, palpatations, mental health, musculoskeletal)? @ -Differential Dizziness: Benign paroxysmal positional Vertigo, Meniere's disease, otitis media, acoustic neuroma, vertebrobasilar insufficiency, cerebellar stroke, encephalitis, hypovolemic, arrhythmia, coronary artery syndrome, anemia, this is not meant to be an all-inclusive list EKG interpreted by me (3pts min.). @ -As above X-rays interpreted by me (1pt min.). @ -Chest x-ray shows no acute process CT interpreted by me (1pt min.). @ -None done U/S interpreted by me (1pt. min.). @ -None done What testing was considered but not performed or refused? (CT, X-rays, U/S, labs)? Why? @ -None What meds were considered but not given or refused? Why? @ -Consider antihypertensive however blood pressure is unremarkable Did you discuss the management of the patient with other professionals (professionals i.e. Dr., PA, ENVIRONMENTAL MARKETING REPRESENTATIVE, lab, RT, psych nurse, elementary school social worker, lead business analyst, teacher, bank officer, human services case manager)? Give summary @ -No Was smoking cessation discussed for >3mins.? @ -No Was critical care preformed (if so, how long)? @ -No Were there social determinants of health that impacted care today? How? (Homelessness, low income, unemployed, alcoholism, drug addiction, transportation, low edu. Level, literacy, decrease access to med. care, half-way, rehab)? @ -No Was there de-escalation of care discussed even if they declined (Discuss DNR or withdrawal of care, Hospice)? DNR status @ -No What co-morbidities impacted this encounter? (DM, HTN, Smoking, COPD, CAD, Cancer, CVA, ARF, Chemo, Hep., AIDS, mental health diagnosis, sleep apnea, morbid obesity)? @ -History of hypertension Was patient admitted / discharged? Hospital course, mention meds given and route, prescriptions, significant lab abnormalities, going to OR and other pertinent info. @ -Patient presents with concern for hypertension. Blood pressure reading unremarkable in the emergency department. Patient will be discharged for follow-up with her primary care doctor. Patient is requesting discharge Undiagnosed new problem with uncertain prognosis? @ -No Drug Therapy requiring intensive monitoring for toxicity (Heparin, Nitro, Insulin, Cardizem)? @ -No Were any procedures done? @ -No Diagnosis/symptom? @ -Hypertension Acute, or Chronic, or Acute on Chronic? @ -Acute on chronic Uncomplicated (without systemic symptoms) or Complicated (systemic symptoms)? @ -Default Side effects of treatment? @ -No Exacerbation, Progression, or Severe Exacerbation? @ -No Poses a threat to life or bodily function? How? (Chest pain, [place], [place], pneumonia, PE, COPD, DKA, ARF, appy, cholecystitis, CVA, Diverticulitis, Homicidal, Suicidal, threat to staff... and all critical care pts) @ -No (Esau Pradhan) Disposition <Keagan Oshea - Last Filed: 08/25/24 16:47> Is patient prescribed a controlled substance at d/c from ED?: No Time of Disposition: 18:41 <Esau Pradhan - Last Filed: 08/25/24 18:41> Clinical Impression: Hypertension Disposition: HOME SELF-CARE Condition: Stable Instructions (If sedation given, give patient instructions): Hypertension (ED) Additional Instructions: Please do follow-up with your primary care physician in the next couple of days for recheck. Return for increased blood pressure, chest pain, weakness, worsening or changing symptoms or any other concerns. Referrals: Low Romero MD [Primary Care Provider] - 1-2 days
[2024-08-25 19:11] VITALS: BP 146/66; PULSE 69; RESP 16; TEMP 97.8
== END 2024-08-25 19:11 | disposition home or self-care (01) ==
LOC: EC 15:26
DX: I10 Essential (primary) hypertension (principal); Z91.013 Allergy to seafood; Z91.041 Radiographic dye allergy status; Z87.891 Personal history of nicotine dependence
CPT/HCPCS: 71046; 93005; 99283